=== PATIENT | male | born 1955 | race Caucasian/White ===

== ENCOUNTER 2016-09-05 09:42 | Outpatient (CLI) | payer MEDICAID | END 2016-09-05 09:43 | disposition home or self-care (01) | DX: E11.3219 Type 2 diabetes mellitus with mild nonproliferative diabetic retinopathy with macular edema, unspecified eye (principal) ==

== ENCOUNTER 2016-09-22 18:13 | Emergency (ER) | payer MEDICAID | END 2016-09-22 19:58 | disposition home or self-care (01) | DX: D64.9 Anemia, unspecified (principal); R53.83 Other fatigue; E11.22 Type 2 diabetes mellitus with diabetic chronic kidney disease; N18.9 Chronic kidney disease, unspecified; E11.42 Type 2 diabetes mellitus with diabetic polyneuropathy; I12.9 Hypertensive chronic kidney disease with stage 1 through stage 4 chronic kidney disease, or unspecified chronic kidney disease; Z79.82 Long term (current) use of aspirin; Z79.4 Long term (current) use of insulin ==

== ENCOUNTER 2016-12-10 19:43 | Outpatient (CLI) | payer MEDICAID | END 2016-12-10 19:44 | disposition home or self-care (01) | DX: E11.3219 Type 2 diabetes mellitus with mild nonproliferative diabetic retinopathy with macular edema, unspecified eye (principal) ==

== ENCOUNTER 2017-01-13 14:47 | Outpatient (CLI) | payer MEDICAID ==
[2017-01-13 19:00] LABS: HCT - HEMATOCRIT 35.7 % (42.0-52.0); HGB - HEMOGLOBIN 11.7 g/dL (14.0-18.0); MEAN CORPUSCULAR HEMOGLOBIN 29.1 pg (27.0-31.0); MEAN CORPUSCULAR HGB CONC 32.8 g/dL (32.0-36.0); MEAN CORPUSCULAR VOLUME 88.6 fL (80.0-94.0); MEAN PLATELET VOLUME 8.9 fL (7.4-11.4); RED BLOOD COUNT 4.03 10^6/uL (4.70-6.10); RED CELL DISTRIBUTION WIDTH 13.7 % (12.0-15.0); WHITE BLOOD COUNT 13.4 x10^3/uL (4.8-10.8)
[2017-01-13 19:27] LABS: CALCIUM 9.3 mg/dL (8.5-10.3); CREATININE 2.9 mg/dL (0.6-1.2)
== END 2017-01-13 14:48 | disposition home or self-care (01) ==
LOC: LAB.N 14:47
PROVIDERS: ATTEND Internal Medicine Nephrology
DX: N05.9 Unspecified nephritic syndrome with unspecified morphologic changes (principal); D70.9 Neutropenia, unspecified; D63.1 Anemia in chronic kidney disease; R80.9 Proteinuria, unspecified
CPT/HCPCS: 36415; 80048; 82570; 84156

== ENCOUNTER 2017-04-04 08:38 | Outpatient (CLI) | payer MEDICAID ==
[2017-04-04 13:26] LABS: HEMOGLOBIN A1C 1.11 g/dL
== END 2017-04-04 08:39 | disposition home or self-care (01) ==
LOC: LAB.N 08:38
PROVIDERS: ATTEND Nurse Practitioner Gerontology
DX: E11.40 Type 2 diabetes mellitus with diabetic neuropathy, unspecified (principal)
CPT/HCPCS: 36415; 83036

== ENCOUNTER 2017-07-31 08:00 | Outpatient (CLI) | payer SELFPAY ==
[2017-07-31 13:28] LABS: HEMOGLOBIN A1C 1.52 g/dL
== END 2017-07-31 23:59 ==
LOC: LAB.N 08:00
PROVIDERS: ATTEND Nurse Practitioner Gerontology
DX: E11.3219 Type 2 diabetes mellitus with mild nonproliferative diabetic retinopathy with macular edema, unspecified eye (principal)
CPT/HCPCS: 36415; 83036

== ENCOUNTER 2017-08-29 19:52 | Emergency (ER) | payer SELFPAY ==
[2017-08-29 20:18] LABS: BILIRUBIN,URINE NEGATIVE (NEGATIVE); GLUCOSE, URINE (UA) 250 mg/dL (NEGATIVE); KETONES,URINE (UA) NEGATIVE (NEGATIVE); LEUKOCYTE ESTERASE, URINE NEGATIVE (NEGATIVE); NITRITE,URINE NEGATIVE (NEGATIVE); OCCULT BLOOD,URINE SMALL (NEGATIVE); PROTEIN,URINE 100 mg/dL (NEGATIVE); UROBILINOGEN,URINE 0.2 (NORMAL) E.U./dL (NORMAL)
[2017-08-29 20:29] LABS: CLARITY,URINE HAZY (CLEAR)
[2017-08-29 20:30] LABS: BACTERIA,URINE Few /HPF (None Seen); SQUAMOUS EPITHELIAL CELL,UR FEW Squamous (<= Few)
[2017-08-29] MEDS ORDERED: ONDANSETRON ODT 4 MG TABLET TL STA (20:38)
[2017-08-29 20:53] LABS: BASOPHILS % (AUTO) 0.5 %; EOSINOPHILS % (AUTO) 3.8 %; HGB - HEMOGLOBIN 12.1 g/dL (14.0-18.0); LYMPHOCYTES % (AUTO) 26.6 %; MEAN CORPUSCULAR HEMOGLOBIN 29.4 pg (27.0-31.0); MEAN CORPUSCULAR HGB CONC 32.5 g/dL (32.0-36.0); MEAN CORPUSCULAR VOLUME 90.5 fL (80.0-94.0); MEAN PLATELET VOLUME 8.4 fL (7.4-11.4); MONOCYTES % (AUTO) 5.9 %; NEUTROPHILS % (AUTO) 63.2 %; PLT - PLATELET COUNT 262 10^3/uL (130-450); RED CELL DISTRIBUTION WIDTH 13.2 % (12.0-15.0); WHITE BLOOD COUNT 10.2 x10^3/uL (4.8-10.8)
[2017-08-29 20:58] LABS: ABNORMAL LYMPHS % (MANUAL) 0 %
[2017-08-29 21:05] LABS: ALBUMIN 3.4 g/dL (3.2-5.5); BILIRUBIN,TOTAL 0.3 mg/dL (0.2-1.0); CALCIUM 9.1 mg/dL (8.5-10.3); CREATININE 2.7 mg/dL (0.6-1.2); TOTAL PROTEIN 6.9 g/dL (6.7-8.2)
[2017-08-29 21:19] LABS: BAND NEUTROPHILS % (MANUAL) 1 %; EOSINOPHILS # (MANUAL) 0.2 10^3/uL (0-0.7); LYMPHOCYTES # (MANUAL) 3.9 10^3/uL (1.5-3.5); LYMPHOCYTES % (MANUAL) 34 %; METAMYELOCYTES % (MANUAL) 3 %; MONOCYTES # (MANUAL) 0.3 10^3/uL (0.0-1.0); MYELOCYTES % (MANUAL) 3 %; NEUTROPHILS # (MANUAL) 5.2 10^3/uL (1.5-6.6); NEUTROPHILS % (MANUAL) 50 %
--- NOTE | 2017-08-29 22:28 | CT Report ---
EXAM: CT ABDOMEN AND PELVIS EXAM DATE: 08/29/2017 09:57 PM. CLINICAL HISTORY: Rlq pain, gfr less than 24. COMPARISONS: 10/14/2013 CT. TECHNIQUE: Routine helical CT imaging was performed through the abdomen and pelvis. IV contrast: No. Enteric contrast: No. Reconstructions: Coronal and sagittal. In accordance with CT protocol optimization, one or more of the following dose reduction techniques w ere utilized for this exam: automated exposure control, adjustment of mA and/or KV based on patient s ize, or use of iterative reconstructive technique. FINDINGS: Lung Bases: Unremarkable. Liver: The unenhanced liver is unremarkable. Gallbladder/Bile Ducts: The gallbladder has been removed. There is a dilated cystic duct remnant shaquille lar to the previous exam. Spleen: Normal. Pancreas: Atrophic pancreas. No evidence of acute pancreatitis. Adrenal Glands: Normal. Kidneys: Normal. No masses or hydronephrosis. Peritoneal Cavity/Bowel: Normal. No free fluid, free air or adenopathy. No masses or acute inflammato ry process. The appendix is well visualized and normal. Pelvic Organs: Normal. The bladder and visualized pelvic organs are within normal limits. Vasculature: Atherosclerotic aortoiliac disease. No evidence of aneurysm. Bones: No significant abnormality. Other: There is a small omentum-containing midline upper abdominal hernia.. IMPRESSION: 1. No evidence of appendicitis or other acute inflammatory process. 2. No urinary tract stones or obstruction. 3. Status post cholecystectomy with dilated cystic duct remnant similar to the previous exam. 4. Small, omentum-containing midline upper abdominal ventral hernia. [facility] Referring Provider Line: [phone] SITE ID: [id number]
--- NOTE | 2017-08-29 22:55 | ED Physician Documentation ---
PD HPI ABD PAIN - Stated complaint Stated Complaint: MALE /COUGH - Chief complaint Chief Complaint: Abd Pain - History obtained from History obtained from: Patient - History of Present Illness Timing - onset: Yesterday Timing - details: Gradual onset, Still present Quality: Cramping, Aching Location: RLQ Associated symptoms: Nausea. No: Fever, Vomiting, Hematemesis Similar symptoms before: Work up / diagnostics Recently seen: Not recently seen - Additional information Additional information: Patient is a 61 year old male with a history of CKD who is presenting to the emergency department for abdominal pain. Patient states that he had the pain starting yesterday and it has been accompanied with a mild cough. Patient states that the last two times he had this mild cough and didn't feel right he was sick (gallbladder disease and pancreatitis). Patient thought that he might be sick again so he came to the emergency department for evaluation. Review of Systems Constitutional: reports: Chills. denies: Fever, Sweats Eyes: denies: Decreased vision Ears: denies: Ear pain Nose: denies: Rhinorrhea / runny nose, Congestion Throat: denies: Sore throat Respiratory: reports: Cough. denies: Wheezing GI: reports: Abdominal Pain, Nausea. denies: Vomiting, Constipation, Diarrhea : denies: Dysuria, Frequency, Hesitancy Skin: denies: Rash, Lesions Musculoskeletal: denies: Neck pain, Back pain Neurologic: denies: Generalized weakness, Focal weakness, Numbness Immunocompromised: denies: Immunocompromised PD PAST MEDICAL HISTORY - Past Medical History Cardiovascular: Hypertension, High cholesterol, [place], Other Neuro: Peripheral neuropathy Endocrine/Autoimmune: Type 2 diabetes, Other GI: Chronic constipation, Pancreatitis, Other HEENT: Macular degeneration, Other - Past Surgical History Past Surgical History: Yes General: Cholecystectomy - Present Medications Home Medications: Ambulatory Orders Medication Instructions Recorded Confirmed Lisinopril 5 mg PO DAILY 12/17/12 09/22/16 Amlodipine Besylate 5 mg PO QDBREAKFAST 10/14/13 09/22/16 hydroCHLOROthiazide [Hydrodiuril] 25 mg PO DAILY 10/14/13 09/22/16 Amlodipine Besylate [Norvasc] 10 mg PO QPM 05/31/14 09/22/16 Insulin Glargine [Lantus Solostar] 28 unit SQ QPM 06/29/15 09/22/16 Insulin Glulisine [Apidra Solostar] 8 - 10 units SQ AC 08/15/15 09/22/16 Aspirin [Aspir-Low] 81 mg PO DAILY 09/22/16 09/22/16 Atorvastatin [Lipitor] 20 mg PO DAILY 09/22/16 09/22/16 Cetirizine [ZyrTEC] 10 mg PO DAILY 09/22/16 09/22/16 - Allergies Allergies/Adverse Reactions: Allergies Allergy/AdvReac Type Severity Reaction Status Date / Time No Known Drug Allergies Allergy Verified 08/29/17 19:59 - Social History Does the pt smoke?: No Smoking Status: Former smoker Does the pt drink ETOH?: No Does the pt have substance abuse?: No - Immunizations Immunizations are current?: Yes - POLST Patient has POLST: No PD ED PE NORMAL - General General: Alert and oriented X 3, No acute distress - HEENT HEENT: Atraumatic, PERRL, Moist mucous membranes, Pharynx benign - Neck Neck: Supple, no meningeal sign, No JVD - Cardiac Cardiac: RRR, No murmur - Respiratory Respiratory: No respiratory distress, Clear bilaterally - Derm Derm: Normal color, Warm and dry, No rash - Extremities Extremities: No deformity, Normal ROM s pain, No edema - Neuro Neuro: Alert and oriented X 3, No motor deficit, No sensory deficit, Normal speech - Psych Psych: Normal mood PD ED PE EXPANDED - Abdomen Abdomen: Tender to palpation, RLQ. No: Rebound, Guarding Results - Vitals Vitals: Vital Signs - 24 hr 08/29/17 08/29/17 19:56 22:59 Temperature 36.9 C Heart Rate 100 98 Respiratory 16 16 Rate Blood Pressure 161/99 H 147/95 H O2 Saturation 99 99 Oxygen O2 Source Room air - Labs Labs: Laboratory Tests 08/29/17 08/29/17 08/29/17 19:10 20:45 20:45 WBC 10.2 RBC 4.10 L Hgb 12.1 L Hct 37.1 L MCV 90.5 MCH 29.4 MCHC 32.5 RDW 13.2 Plt Count 262 MPV 8.4 Neut # Not Reportable Lymph # Not Reportable [place] # Not Reportable Eos # Not Reportable Baso # Not Reportable Absolute Nucleated RBC Not Reportable Total Counted 100 Band Neuts % (Manual) 1 Reactive Lymphs % (Man) 4 Abnorm Lymph % (Manual) 0 Metamyelocytes % 3 H Myelocytes % 3 H Nucleated RBC % Not Reportable Neutrophils # (Manual) 5.2 Lymphocytes # (Manual) 3.9 H Monocytes # (Manual) 0.3 Eosinophils # (Manual) 0.2 Basophils # (Manual) 0.0 Manual Slide Review Indicated RBC Morph Micro Appear 1+ KISHA CELLS Sodium 133 L Potassium 3.9 Chloride 101 Carbon Dioxide 21 Anion Gap 11.0 BUN 48 H Creatinine 2.7 H Estimated GFR (MDRD) 24 L Glucose 270 H Calcium 9.1 Total Bilirubin 0.3 AST 16 ALT 17 Alkaline Phosphatase 95 Total Protein 6.9 Albumin 3.4 Globulin 3.5 Albumin/Globulin Ratio 1.0 Lipase 21 L Urine Color YELLOW Urine Clarity HAZY Urine pH 6.0 Ur Specific [place] >=1.030 H Urine Protein 100 H Urine Glucose (UA) 250 H Urine Ketones NEGATIVE Urine Occult Blood SMALL H Urine Nitrite NEGATIVE Urine Bilirubin NEGATIVE Urine Urobilinogen 0.2 (NORMAL) Ur Leukocyte Esterase NEGATIVE Urine RBC 6-10 H Urine WBC 0-3 Ur Squamous Epith Cells FEW Squamous Urine Bacteria Few Ur Microscopic Review INDICATED Urine Culture Comments NOT INDICATED Slides for Path Review Indicated - Rads (name of study) ct abd pelvis Radiology: Final report received (no acute abnormality. normal appendix) PD MEDICAL DECISION MAKING - ED course Complexity details: reviewed old records, reviewed results, re-evaluated patient , considered differential, d/w patient ED course: Patient was seen and examined at bedside. IV access was gained and labs were drawn. due to patient's history and location of pain imaging was ordered. Patient could not have contrast due to his renal insufficiency. When patient returned the results were reviewed. there was no sign of acute appendicitis or other intraabdominal infection. patient required no further work up and was stable for discharge with outpatient follow up. Departure - Departure Disposition: 01 Home, Self Care Clinical Impression: Abdominal pain Condition: Good Instructions: Abdominal Pain Follow-Up: Julissa Palmer ARNP [Primary Care Provider] - Within 1 week Comments: Your diagnostics today were within normal limits. there is no sign of infection , or other new acute abnormalities. You can take tylenol as needed for pain. You should follow up with your pmd and you may return to the emergency department at any time for new, worsening or uncontrollable symptoms. Discharge Date/Time: 08/29/17 23:02
[2017-08-29 23:00] VITALS: BP 147/95
== END 2017-08-29 23:02 | disposition home or self-care (01) ==
LOC: ED 19:52
DX: R10.31 Right lower quadrant pain (principal); I12.9 Hypertensive chronic kidney disease with stage 1 through stage 4 chronic kidney disease, or unspecified chronic kidney disease; E11.22 Type 2 diabetes mellitus with diabetic chronic kidney disease; N18.9 Chronic kidney disease, unspecified; E78.00 Pure hypercholesterolemia, unspecified; I25.2 Old myocardial infarction; E11.42 Type 2 diabetes mellitus with diabetic polyneuropathy; Z79.4 Long term (current) use of insulin; Z87.891 Personal history of nicotine dependence
CPT/HCPCS: 36415; 74176; 80053; 81001; 83690; 85025; 99283; 99284; Q0162; 81003; 87086

== ENCOUNTER 2017-10-13 13:10 | Outpatient (CLI) | payer MEDICAID ==
[2017-10-13 19:08] LABS: HGB - HEMOGLOBIN 11.4 g/dL (14.0-18.0); MEAN CORPUSCULAR HGB CONC 32.4 g/dL (32.0-36.0); MEAN CORPUSCULAR VOLUME 89.3 fL (80.0-94.0); MEAN PLATELET VOLUME 9.1 fL (7.4-11.4); RED BLOOD COUNT 3.93 10^6/uL (4.70-6.10); RED CELL DISTRIBUTION WIDTH 13.8 % (12.0-15.0); WHITE BLOOD COUNT 10.7 x10^3/uL (4.8-10.8)
[2017-10-13 19:24] LABS: CALCIUM 8.9 mg/dL (8.5-10.3); CREATININE 2.6 mg/dL (0.6-1.2); PHOSPHORUS 4.1 mg/dL (2.5-4.6)
[2017-10-13 19:42] LABS: CREATININE,URINE 108.3 mg/dL
== END 2017-10-13 13:11 | disposition home or self-care (01) ==
LOC: LAB.N 13:10
PROVIDERS: ATTEND Internal Medicine Nephrology
DX: N05.9 Unspecified nephritic syndrome with unspecified morphologic changes (principal); D70.9 Neutropenia, unspecified; D63.1 Anemia in chronic kidney disease; R80.9 Proteinuria, unspecified; E83.30 Disorder of phosphorus metabolism, unspecified; N25.81 Secondary hyperparathyroidism of renal origin; E87.1 Hypo-osmolality and hyponatremia
CPT/HCPCS: 36415; 80048; 81256; 82570; 83970; 84100; 84156

== ENCOUNTER 2017-11-10 23:10 | Outpatient (CLI) | payer MEDICAID, OTHER ==
[2017-11-10 13:18] LABS: HB2 TOTAL 11.8 g/dL; HEMOGLOBIN A1C 1.13 g/dL; HEMOGLOBIN A1C % 10.9 % (4.6-6.2)
== END 2017-11-10 23:11 | disposition home or self-care (01) ==
LOC: LAB.N 23:10
PROVIDERS: ATTEND Nurse Practitioner Gerontology
DX: E11.65 Type 2 diabetes mellitus with hyperglycemia (principal)
CPT/HCPCS: 36415; 83036

== ENCOUNTER 2017-12-15 14:31 | Emergency (ER) | payer OTHER ==
--- NOTE | 2017-12-15 16:29 | ED Physician Documentation ---
PD HPI LOWER EXT INJURY - Stated complaint Stated Complaint: R KNEE/FOOT PX - Chief complaint Chief Complaint: Ext Problem - History obtained from History obtained from: Patient, Caregiver - History of Present Illness PD HPI LOW EXT INJURY LOCATION: Right, Knee, Lower leg Type of injury: Other (walking) Where injury occurred: Home Timing - onset: How many weeks ago (1) Timing - duration: Weeks (1) Timing - details: Gradual onset, Still present Improved by: Rest, Immobilization Worsened by: Moving, Palpating Associated symptoms: Swelling. 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 He is brought in here by a caregiver who insists that he has been walking too much because he has been an sonia that pays him to walk. The patient acknowledges this. He has not had any other specific risk for confinement. Review of Systems Constitutional: denies: Fever Eyes: denies: Decreased vision Ears: denies: Ear pain Nose: denies: Congestion Throat: denies: Sore throat Cardiac: denies: Chest pain / pressure, Palpitations Respiratory: denies: Dyspnea, Cough GI: denies: Abdominal Pain, Nausea, Vomiting : denies: Dysuria, Frequency Musculoskeletal: reports: Joint pain, Extremity swelling Neurologic: denies: Generalized weakness, Focal weakness, Numbness PD PAST MEDICAL HISTORY - Past Medical History Cardiovascular: Hypertension, High cholesterol, [place], Other Neuro: Peripheral neuropathy Endocrine/Autoimmune: Type 2 diabetes, Other GI: Chronic constipation, Pancreatitis, Other HEENT: Macular degeneration, Other - Past Surgical History Past Surgical History: Yes General: Cholecystectomy - Present Medications Home Medications: Ambulatory Orders Medication Instructions Recorded Confirmed Lisinopril 5 mg PO DAILY 12/17/12 09/22/16 Amlodipine Besylate 5 mg PO QDBREAKFAST 10/14/13 09/22/16 hydroCHLOROthiazide [Hydrodiuril] 25 mg PO DAILY 10/14/13 09/22/16 Amlodipine Besylate [Norvasc] 10 mg PO QPM 05/31/14 09/22/16 Insulin Glargine [Lantus Solostar] 28 unit SQ QPM 06/29/15 09/22/16 Insulin Glulisine [Apidra Solostar] 8 - 10 units SQ AC 08/15/15 09/22/16 Aspirin [Aspir-Low] 81 mg PO DAILY 09/22/16 09/22/16 Atorvastatin [Lipitor] 20 mg PO DAILY 09/22/16 09/22/16 Cetirizine [ZyrTEC] 10 mg PO DAILY 09/22/16 09/22/16 - Allergies Allergies/Adverse Reactions: Allergies Allergy/AdvReac Type Severity Reaction Status Date / Time No Known Drug Allergies Allergy Verified 12/15/17 14:46 - Social History Does the pt smoke?: No Smoking Status: Former smoker Does the pt drink ETOH?: No Does the pt have substance abuse?: No - Immunizations Immunizations are current?: Yes - POLST Patient has POLST: No PD ED PE NORMAL - Vitals Vital signs reviewed: Yes (hypesrtensive ) - General General: Alert and oriented X 3, No acute distress, Well developed/nourished - HEENT HEENT: Atraumatic, PERRL - Respiratory Respiratory: No respiratory distress - Derm Derm: Normal color, Warm and dry, No rash - Extremities Extremities: No deformity, Other (There is swelling from the knee to the foot without tendeness and there is a fullness to the posterior knee consistent with a singh cyst. There is mild posterior calf tenderness as well ) - Neuro Neuro: Alert and oriented X 3, No motor deficit, No sensory deficit, Normal speech Eye Opening: Spontaneous Motor: Obeys Commands Verbal: Oriented GCS Score: 15 - Psych Psych: Normal mood, Normal affect Results - Vitals Vitals: Vital Signs - 24 hr 12/15/17 18:45 Heart Rate 80 Respiratory 16 Rate Blood Pressure 152/96 H Oxygen O2 Source Room air - Rads (name of study) duplex veins right Radiology: Prelim report reviewed (Impression: 1. 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 He does have actual swelling bilaterally and has been doing a lot more walking than usual. I have asked him to wear compression hose when he is doing his walking Departure - Departure Disposition: 01 Home, Self Care Clinical Impression: Singh's cyst of knee Qualifiers: Laterality: right Qualified Code(s): M71.21 - Synovial cyst of popliteal space [Francisco], right knee Condition: Stable Instructions: ED Cyst Singh Follow-Up: Julissa Palmer ARNP [Primary Care Provider] - Discharge Date/Time: 12/15/17 18:46
--- NOTE | 2017-12-15 18:06 | Ultrasound Preliminary Report ---
Exam: US DUPLEX EXT VEINS RIGHT IMPRESSION: 1. Negative for DVT in the right lower extremity. [facility] SITE ID: [id number]
--- NOTE | 2017-12-15 18:06 | Ultrasound Report ---
EXAM: RIGHT LOWER EXTREMITY VENOUS ULTRASOUND EXAM DATE: 12/15/2017 05:17 PM. CLINICAL HISTORY: Right leg swelling. Possible DVT. COMPARISON: None. TECHNIQUE: Real-time sonographic vascular imaging was performed by the protection consultant through the lower extremity utilizing both color-flow and Doppler spectral analysis. Multiple field sales representative static vincent ges were saved for review. FINDINGS: Common Femoral Vein (CFV): Normal. CFV-GSV Junction: Normal. Profunda Femoral Vein (PFV): Normal. Femoral Vein (FV) Prox: Normal. Femoral Vein (FV) Mid: Normal. Femoral Vein (FV) Dist: Normal. Popliteal Vein: Normal. Posterior Tibial Veins: Normal. Peroneal Veins: Normal. IMPRESSION: 1. Negative for DVT in the right lower extremity. [facility] Referring Provider Line: [phone] SITE ID: [id number]
[2017-12-15 18:46] VITALS: BP 152/96
== END 2017-12-15 18:46 | disposition home or self-care (01) ==
LOC: ED 14:31
DX: M71.21 Synovial cyst of popliteal space [Baker], right knee (principal); I10 Essential (primary) hypertension; E78.00 Pure hypercholesterolemia, unspecified; E11.42 Type 2 diabetes mellitus with diabetic polyneuropathy; Z79.4 Long term (current) use of insulin; I25.2 Old myocardial infarction; Z79.82 Long term (current) use of aspirin; Z87.891 Personal history of nicotine dependence
CPT/HCPCS: 99282; 99283

== ENCOUNTER 2018-02-12 08:00 | Outpatient (CLI) | payer OTHER ==
[2018-02-12 13:24] LABS: CALCIUM 9.2 mg/dL (8.5-10.3); CREATININE 3.1 mg/dL (0.6-1.2)
[2018-02-12 13:36] LABS: HB2 TOTAL 11.9 g/dL; HEMOGLOBIN A1C 1.06 g/dL; HEMOGLOBIN A1C % 10.3 % (4.6-6.2)
== END 2018-02-12 08:01 ==
LOC: LAB.N 08:00
PROVIDERS: ATTEND Nurse Practitioner Gerontology
DX: E11.40 Type 2 diabetes mellitus with diabetic neuropathy, unspecified (principal)
CPT/HCPCS: 36415; 80048; 82043; 83036

== ENCOUNTER 2018-04-24 16:01 | Emergency (ER) | payer OTHER ==
[2018-04-24] MEDS ORDERED: SODIUM CHLORIDE 0.9% 1,000 ML IV ONE (16:18)
[2018-04-24 16:32] LABS: BASOPHILS % (AUTO) 0.4 %; EOSINOPHILS # (AUTO) 0.2 10^3/uL (0.0-0.7); EOSINOPHILS % (AUTO) 1.9 %; HGB - HEMOGLOBIN 10.9 g/dL (14.0-18.0); LYMPHOCYTES # (AUTO) 2.3 10^3/uL (1.5-3.5); LYMPHOCYTES % (AUTO) 20.1 %; MEAN CORPUSCULAR HEMOGLOBIN 30.7 pg (27.0-31.0); MEAN CORPUSCULAR HGB CONC 33.3 g/dL (32.0-36.0); MEAN CORPUSCULAR VOLUME 92.1 fL (80.0-94.0); MEAN PLATELET VOLUME 9.2 fL (7.4-11.4); MONOCYTES # (AUTO) 0.8 10^3/uL (0.0-1.0); NEUTROPHILS # (AUTO) 8.1 10^3/uL (1.5-6.6); NEUTROPHILS % (AUTO) 70.6 %; PLT - PLATELET COUNT 225 10^3/uL (130-450); RED BLOOD COUNT 3.56 10^6/uL (4.70-6.10); RED CELL DISTRIBUTION WIDTH 13.6 % (12.0-15.0); WHITE BLOOD COUNT 11.4 x10^3/uL (4.8-10.8)
--- NOTE | 2018-04-24 16:35 | ED Physician Documentation ---
History of Present Illness - Stated complaint Stated Complaint: FATIGUE - Chief complaint Chief Complaint: General - History obtained from History obtained from: Patient - Additonal information Additional information: The patient is a 62-year-old insulin-dependent diabetic male with history of chronic renal disease, who presents with fatigue that has been ongoing for the past 2 days. He has had slight nonproductive cough. He denies fever, chest pain, shortness of breath, nausea or vomiting. He reports that when he feels fatigued like this it has usually been something bad like pancreatitis. In a later conversation he reports having a slight discomfort in his throat yesterday and earlier today. He denies any discomfort at this time. Review of Systems Constitutional: reports: Fatigue. denies: Fever Ears: denies: Tinnitus/ringing Nose: denies: Congestion Throat: reports: Sore throat (Vague feeling of throat discomfort yesterday, but not currently.) Cardiac: denies: Chest pain / pressure, Palpitations Respiratory: reports: Cough (Slight, nonproductive.). denies: Dyspnea GI: denies: Abdominal Pain, Nausea, Vomiting : denies: Dysuria Skin: denies: Rash Musculoskeletal: denies: Extremity pain, Extremity swelling Neurologic: denies: Focal weakness, Numbness, Headache PD PAST MEDICAL HISTORY - Past Medical History Cardiovascular: Hypertension, High cholesterol, [place], Other Endocrine/Autoimmune: Type 2 diabetes, Other GI: Chronic constipation, Pancreatitis, Other HEENT: Macular degeneration, Other - Past Surgical History Past Surgical History: Yes General: Cholecystectomy - Present Medications Home Medications: Ambulatory Orders Medication Instructions Recorded Confirmed Lisinopril 10 mg PO DAILY 12/17/12 09/22/16 hydroCHLOROthiazide [Hydrodiuril] 50 mg PO DAILY 10/14/13 04/24/18 Amlodipine Besylate [Norvasc] 10 mg PO QPM 05/31/14 04/24/18 Insulin Glulisine [Apidra Solostar] 8 - 12 units SQ AC 08/15/15 04/24/18 Aspirin [Aspir-Low] 81 mg PO DAILY 09/22/16 04/24/18 Atorvastatin [Lipitor] 20 mg PO DAILY 09/22/16 04/24/18 - Allergies Allergies/Adverse Reactions: Allergies Allergy/AdvReac Type Severity Reaction Status Date / Time No Known Drug Allergies Allergy Verified 04/24/18 16:23 - Social History Does the pt smoke?: No Smoking Status: Former smoker Does the pt drink ETOH?: No Does the pt have substance abuse?: No - Immunizations Immunizations are current?: Yes - POLST Patient has POLST: No PD ED PE NORMAL - Vitals Vital signs reviewed: Yes (Borderline hypertension.) - General General: Alert and oriented X 3, Well developed/nourished - HEENT HEENT: Atraumatic, Moist mucous membranes, Pharynx benign - Neck Neck: Supple, no meningeal sign, No adenopathy, No JVD - Cardiac Cardiac: RRR, No murmur - Respiratory Respiratory: No respiratory distress, Clear bilaterally - Abdomen Abdomen: Soft, Non tender - Back Back: No CVA TTP - Derm Derm: No rash - Extremities Extremities: No edema, No calf tenderness / cord - Neuro Neuro: Alert and oriented X 3, No motor deficit, No sensory deficit Results - Vitals Vitals: Vital Signs - 24 hr 04/24/18 04/24/18 16:09 17:05 Temperature 37.1 C Heart Rate 84 68 Respiratory 18 18 Rate Blood Pressure 144/81 H 146/74 H O2 Saturation 98 99 Oxygen O2 Source Room air - EKG (time done) 16:28 Rate: Rate (enter#) (87) Rhythm: NSR [place]: Normal Intervals: Other (Nonspecific IVCD.) Ischemia: ST elevation c/w ischemia (<1mm ST elevation in III and aVF, new since prior tracing of 09/22/2016.) Compare to prior EKG: Changed from prior EKG Computer interpretation: Agree with computer - Labs Labs: Laboratory Tests 04/24/18 04/24/18 04/24/18 16:25 16:25 16:25 WBC 11.4 H RBC 3.56 L Hgb 10.9 L Hct 32.8 L MCV 92.1 MCH 30.7 MCHC 33.3 RDW 13.6 Plt Count 225 MPV 9.2 Neut # (Auto) 8.1 H Lymph # (Auto) 2.3 [place] # (Auto) 0.8 Eos # (Auto) 0.2 Baso # (Auto) 0.0 Absolute Nucleated RBC 0.00 Nucleated RBC % 0.0 Sodium 132 L Potassium 4.1 Chloride 101 Carbon Dioxide 25 Anion Gap 6.0 BUN 49 H Creatinine 3.1 H Estimated GFR (MDRD) 21 L Glucose 350 H Calcium 8.9 Total Bilirubin 0.4 AST 58 H ALT 24 Alkaline Phosphatase 108 Troponin I 4.81 H* Total Protein 7.2 Albumin 3.5 Globulin 3.7 Albumin/Globulin Ratio 0.9 L Lipase 27 Urine Color Urine Clarity Urine pH Ur Specific [place] Urine Protein Urine Glucose (UA) Urine Ketones Urine Occult Blood Urine Nitrite Urine Bilirubin Urine Urobilinogen Ur Leukocyte Esterase Urine RBC Urine WBC Ur Squamous Epith Cells Urine Bacteria Urine Casts Urine Mucus Ur Microscopic Review Urine Culture Comments 04/24/18 16:44 WBC RBC Hgb Hct MCV MCH MCHC RDW Plt Count MPV Neut # (Auto) Lymph # (Auto) [place] # (Auto) Eos # (Auto) Baso # (Auto) Absolute Nucleated RBC Nucleated RBC % Sodium Potassium Chloride Carbon Dioxide Anion Gap BUN Creatinine Estimated GFR (MDRD) Glucose Calcium Total Bilirubin AST ALT Alkaline Phosphatase Troponin I Total Protein Albumin Globulin Albumin/Globulin Ratio Lipase Urine Color YELLOW Urine Clarity HAZY Urine pH 5.5 Ur Specific [place] 1.025 Urine Protein >=300 Urine Glucose (UA) 500 H Urine Ketones NEGATIVE Urine Occult Blood SMALL H Urine Nitrite NEGATIVE Urine Bilirubin NEGATIVE Urine Urobilinogen 0.2 (NORMAL) Ur Leukocyte Esterase NEGATIVE Urine RBC 0-5 Urine WBC 0-3 Ur Squamous Epith Cells NONE SEEN Urine Bacteria None Seen Urine Casts 3-5 Hyaline Casts Urine Mucus Few Strands Ur Microscopic Review INDICATED Urine Culture Comments NOT INDICATED - Rads (name of study) CXR Radiology: Prelim report reviewed, EMP read contemporaneously, See rad report (Normal single view chest radiography.) PD MEDICAL DECISION MAKING - ED course Complexity details: reviewed old records, reviewed results, re-evaluated patient, considered differential, d/w patient, d/w internet marketing consultant ED course: The patient's presentation is significant for an acute inferior [place], with less than [address] elevations in leads III and aVF, which are new since prior tracing of September 2016. His troponin is elevated at 4.81. In addition his blood sugar is elevated at 350, and his BUN and creatinine are elevated at 49 and 3.1. Review of his medical record reveals previous BUN and creatinine in that range. Treatment in the emergency department included administration of 4 baby aspirin orally, Lopressor 25 mg orally, Plavix 300 mg orally, heparin bolus and infusion as per cardiac protocol. Insulin 10 units regular was administered subcutaneously. I discussed his condition with the emergency physician on duty at [facility], Dr. Artemio Crawford, who will accept the patient in transfer. Transfer forms were completed. - Critical Care Time(min): 45 Time Includes: Direct patient care, Review records, Reassess patient, Document care, Coordinate care Data interpretation: Labs, Pulse ox, CXR, Prior EKG Procedures excluded from critical care time: EKG - Sepsis Event Vital Signs: Vital Signs - 24 hr 04/24/18 04/24/18 16:09 17:05 Temperature 37.1 C Heart Rate 84 68 Respiratory 18 18 Rate Blood Pressure 144/81 H 146/74 H O2 Saturation 98 99 Oxygen O2 Source Room air Departure - Departure Disposition: 02 Transfer Acute Care Hosp Clinical Impression: Acute [place] Qualifiers: Myocardial infarction type: ST elevation myocardial infarction Involved coronary artery: other inferior wall coronary artery Qualified Code(s): I21.19 - ST elevation (STEMI) myocardial infarction involving other coronary artery of inferior wall Diabetes mellitus with hyperglycemia, with long-term current use of insulin Qualifiers: Diabetes mellitus type: type 2 Qualified Code(s): E11.65 - Type 2 diabetes mellitus with hyperglycemia Chronic renal insufficiency Qualifiers: Chronic kidney disease stage: unspecified stage Qualified Code(s): N18.9 - Chronic kidney disease, unspecified Condition: Stable
[2018-04-24 16:45] LABS: ALBUMIN 3.5 g/dL (3.2-5.5); ALBUMIN/GLOBULIN RATIO 0.9 (1.0-2.2); BILIRUBIN,TOTAL 0.4 mg/dL (0.2-1.0); CALCIUM 8.9 mg/dL (8.5-10.3); CREATININE 3.1 mg/dL (0.6-1.2); TOTAL PROTEIN 7.2 g/dL (6.7-8.2)
[2018-04-24 16:55] LABS: BILIRUBIN,URINE NEGATIVE (NEGATIVE); GLUCOSE, URINE (UA) 500 mg/dL (NEGATIVE); KETONES,URINE (UA) NEGATIVE (NEGATIVE); LEUKOCYTE ESTERASE, URINE NEGATIVE (NEGATIVE); NITRITE,URINE NEGATIVE (NEGATIVE); OCCULT BLOOD,URINE SMALL (NEGATIVE); PH,URINE 5.5 PH (5.0-7.5); PROTEIN,URINE >=300 mg/dL (NEGATIVE); UROBILINOGEN,URINE 0.2 (NORMAL) E.U./dL (NORMAL)
[2018-04-24] MEDS ORDERED: INSULIN REGULAR HUMAN 100 UNIT/1 ML 10 ML MDV SUBQ STA (16:58)
[2018-04-24 17:02] LABS: CLARITY,URINE HAZY (CLEAR)
[2018-04-24 17:04] LABS: BACTERIA,URINE None Seen /HPF (None Seen); CASTS, URINE 3-5 Hyaline Casts /LPF; MUCUS,URINE Few Strands; RBC,URINE 0-5 /HPF (0-5); SQUAMOUS EPITHELIAL CELL,UR NONE SEEN (<= Few)
[2018-04-24 17:06] VITALS: BP 146/74
[2018-04-24] MEDS ORDERED: METOPROLOL TARTRATE 50 MG TABLET PO STA (17:25)
[2018-04-24] MEDS ORDERED: HEPARIN 25000UNITS/500ML (D5W) 25,000 UNIT/500 ML BAG IV ONE (17:26)
[2018-04-24] MEDS ORDERED: CLOPIDOGREL 300 MG TABLET PO STA (17:26)
[2018-04-24] MEDS ORDERED: METOPROLOL TARTRATE 50 MG TABLET ONE (17:26)
[2018-04-24] MEDS ORDERED: HEPARIN 5,000 UNIT/ML VIAL ONE (17:26)
[2018-04-24] MEDS ORDERED: HEPARIN 25000UNITS/500ML (D5W) 25,000 UNIT/500 ML BAG IV STA (17:26)
[2018-04-24] MEDS ORDERED: ASPIRIN CHEW 81 MG TABLET ONE (17:26)
[2018-04-24] MEDS ORDERED: CLOPIDOGREL 300 MG TABLET PO ONE (17:26)
--- NOTE | 2018-04-24 17:56 | XRAY Report ---
Reason: cough Procedure Date: 04/24/2018 Accession Number: [id number] / [id number] Procedure: XR - Chest 1 View X-Ray CPT Code: 41477 FULL RESULT: EXAM: CHEST RADIOGRAPHY EXAM DATE: 04/24/2018 05:48 PM. CLINICAL HISTORY: Cough. COMPARISON: Chest 2 view PA and lateral 11/12/2013. TECHNIQUE: 1 view. FINDINGS: Lungs/Pleura: No focal opacities evident. No pleural effusion. No pneumothorax. Mediastinum: Within exam limitations, the cardiomediastinal contour is normal. Other: None. IMPRESSION: Normal single view chest. [facility]
== END 2018-04-24 18:46 | disposition short-term general hospital (02) ==
LOC: ED 16:01
DX: I21.19 ST elevation (STEMI) myocardial infarction involving other coronary artery of inferior wall (principal); E11.65 Type 2 diabetes mellitus with hyperglycemia; E11.22 Type 2 diabetes mellitus with diabetic chronic kidney disease; I12.9 Hypertensive chronic kidney disease with stage 1 through stage 4 chronic kidney disease, or unspecified chronic kidney disease; N18.9 Chronic kidney disease, unspecified; Z79.4 Long term (current) use of insulin; R94.31 Abnormal electrocardiogram [ECG] [EKG]; E78.00 Pure hypercholesterolemia, unspecified; I25.2 Old myocardial infarction
CPT/HCPCS: 36415; 71045; 80053; 81001; 83690; 84484; 85025; 93005; 96365; 96375; 99284; A9270; J1815; 81003; 87086

== ENCOUNTER 2018-04-24 18:21 | Outpatient (CLI) | payer OTHER | END 2018-04-24 18:22 | disposition short-term general hospital (02) | LOC: EMS 18:21 | PROVIDERS: ATTEND Surgery | DX: I21.9 Acute myocardial infarction, unspecified (principal) | CPT/HCPCS: A0425; A0426 ==

== ENCOUNTER 2018-04-30 09:00 | Outpatient (CLI) | payer OTHER ==
[2018-04-30 13:20] LABS: CALCIUM 9.2 mg/dL (8.5-10.3)
== END 2018-04-30 09:01 | disposition home or self-care (01) ==
LOC: LAB.N 09:00
PROVIDERS: ATTEND Internal Medicine Nephrology
DX: N05.9 Unspecified nephritic syndrome with unspecified morphologic changes (principal)
CPT/HCPCS: 36415; 80048

== ENCOUNTER 2018-05-25 09:35 | Outpatient (CLI) | payer OTHER ==
[2018-05-25 13:12] LABS: HEMOGLOBIN A1C 0.89 g/dL; HEMOGLOBIN A1C % 9.6 % (4.6-6.2)
== END 2018-05-25 09:36 | disposition home or self-care (01) ==
LOC: LAB.WCP 09:35
PROVIDERS: ATTEND Nurse Practitioner Gerontology
DX: E11.65 Type 2 diabetes mellitus with hyperglycemia (principal)
CPT/HCPCS: 36415; 83036

== ENCOUNTER 2018-07-20 08:00 | Outpatient (CLI) | payer OTHER ==
[2018-07-20 19:13] LABS: HGB - HEMOGLOBIN 10.7 g/dL (14.0-18.0); MEAN CORPUSCULAR HEMOGLOBIN 29.5 pg (27.0-31.0); MEAN CORPUSCULAR VOLUME 92.2 fL (80.0-94.0); MEAN PLATELET VOLUME 9.7 fL (7.4-11.4); RED BLOOD COUNT 3.63 10^6/uL (4.70-6.10); RED CELL DISTRIBUTION WIDTH 14.3 % (12.0-15.0); WHITE BLOOD COUNT 8.1 x10^3/uL (4.8-10.8)
[2018-07-20 19:29] LABS: CALCIUM 8.4 mg/dL (8.5-10.3); PHOSPHORUS 4.2 mg/dL (2.5-4.6)
[2018-07-20 20:31] LABS: CREATININE,URINE 120.5 mg/dL
== END 2018-07-20 23:59 | disposition home or self-care (01) ==
LOC: LAB.N 08:00
PROVIDERS: ATTEND Internal Medicine Nephrology
DX: N05.9 Unspecified nephritic syndrome with unspecified morphologic changes (principal); D70.9 Neutropenia, unspecified; D63.1 Anemia in chronic kidney disease; R80.9 Proteinuria, unspecified; E83.30 Disorder of phosphorus metabolism, unspecified; N25.81 Secondary hyperparathyroidism of renal origin
CPT/HCPCS: 36415; 80048; 82570; 83970; 84100; 84156; 85027

== ENCOUNTER 2018-08-22 09:57 | Emergency (ER) | payer OTHER ==
--- NOTE | 2018-08-22 10:24 | ED Physician Documentation ---
History of Present Illness - Stated complaint Stated Complaint: LT ARM TINGELING - Chief complaint Chief Complaint: Ext Problem - Additonal information Additional information: hx from pt 62 male has CAD DM renal insuff to ED with CC 1 month of L arm tingling entire arm affected constant for a month - no ppt or palliating factors no numbness or weakness no other ext affected no CP or SOA no fever cough abd pain NVD no injury Review of Systems Constitutional: denies: Fever, Chills Cardiac: denies: Chest pain / pressure Respiratory: denies: Dyspnea GI: denies: Abdominal Pain, Vomiting, Diarrhea Neurologic: reports: Other (tingling to entire L arm fo a month). denies: Focal weakness, Numbness PD PAST MEDICAL HISTORY - Past Medical History Cardiovascular: Hypertension, High cholesterol, [place], Other Endocrine/Autoimmune: Type 2 diabetes, Other GI: Chronic constipation, Pancreatitis, Other HEENT: Macular degeneration, Other - Past Surgical History Past Surgical History: Yes General: Cholecystectomy - Present Medications Home Medications: Ambulatory Orders Medication Instructions Recorded Confirmed Lisinopril 10 mg PO DAILY 12/17/12 09/22/16 hydroCHLOROthiazide [Hydrodiuril] 50 mg PO DAILY 10/14/13 04/24/18 Amlodipine Besylate [Norvasc] 10 mg PO QPM 05/31/14 04/24/18 Insulin Glulisine [Apidra Solostar] 8 - 12 units SQ AC 08/15/15 04/24/18 Aspirin [Aspir-Low] 81 mg PO DAILY 09/22/16 04/24/18 Atorvastatin [Lipitor] 20 mg PO DAILY 09/22/16 04/24/18 predniSONE [Deltasone] 20 mg PO [id number] #[id number] tab 08/22/18 - Allergies Allergies/Adverse Reactions: Allergies Allergy/AdvReac Type Severity Reaction Status Date / Time No Known Drug Allergies Allergy Verified 04/24/18 16:23 - Social History Does the pt smoke?: No Smoking Status: Former smoker Does the pt drink ETOH?: No Does the pt have substance abuse?: No - Immunizations Immunizations are current?: Yes - POLST Patient has POLST: No PD ED PE NORMAL - Vitals Vital signs reviewed: Yes - Neck Neck: Supple, no meningeal sign, No bony TTP - Cardiac Cardiac: RRR - Respiratory Respiratory: No respiratory distress - Abdomen Abdomen: Soft - Derm Derm: Normal color - Extremities Extremities: Other (no edema or discoloration strong pulses nl senation shoulder AB elbow fex ext wrist flex ext finger ABD thumbs up wood fuel pelletizer all 5/5) - Neuro Neuro: Alert and oriented X 3, addiction professional 2-12 intact, No motor deficit, No sensory deficit Results - Vitals Vitals: Vital Signs - 24 hr 08/22/18 08/22/18 08/22/18 10:10 11:21 11:30 Temperature 36.3 C L Heart Rate 70 62 63 Respiratory 16 15 16 Rate Blood Pressure 138/88 H 156/87 H 152/92 H O2 Saturation 100 100 98 Oxygen O2 Source Room air - EKG (time done) 1015 Rate: Rate (enter#) Rhythm: NSR Ischemia: Other (ST elev concave up V1-V3 could be rpol or ischemia. TWI V6, ST depr and TWI I) Compare to prior EKG: Other (change from Apr 2018 - he has TE elev nf then and the TWI V6 is new today) - Labs Labs: Laboratory Tests 08/22/18 08/22/18 08/22/18 10:27 10:27 10:27 WBC 9.2 RBC 3.85 L Hgb 11.3 L Hct 34.8 L MCV 90.2 MCH 29.3 MCHC 32.4 RDW 14.4 Plt Count 212 MPV 8.7 Neut # (Auto) 6.0 Lymph # (Auto) 2.1 [place] # (Auto) 0.6 Eos # (Auto) 0.4 Baso # (Auto) 0.0 Absolute Nucleated RBC 0.00 Nucleated RBC % 0.0 Sodium 135 Potassium 4.7 Chloride 108 Carbon Dioxide 21 Anion Gap 6.0 BUN 58 H Creatinine 2.9 H Estimated GFR (MDRD) 22 L Glucose 158 H Calcium 8.7 Total Bilirubin 0.3 AST 21 ALT 22 Alkaline Phosphatase 112 Troponin I < 0.04 Total Protein 6.4 L Albumin 3.1 L Globulin 3.3 Albumin/Globulin Ratio 0.9 L Lipase 27 - Rads (name of study) CTH Radiology: See rad report (no acute) CT CS Radiology: See rad report (no acute process, but severe spinal canal and foraminal stenosis) CXR Radiology: See rad report (no acute) PD MEDICAL DECISION MAKING - ED course ED course: creat is baseline Departure - Departure Disposition: 01 Home, Self Care Clinical Impression: Paresthesia and pain of left extremity, Spinal stenosis in cervical region Condition: Good Instructions: ED Cervical Radiculopathy Follow-Up: Julissa Palmer ARNP [Primary Care Provider] - Prescriptions: predniSONE [Deltasone] 20 mg PO [id number] #[id number] tab Comments: Your heart seems OK today. The EKG is not normal but is similar to prior and more importantly the blood test for a heart attack was negative. The labs were otherwise fine except for mild anemia and renal insufficiency which is not new. The chest xray was fine The CT of your brain was fine The CT of your neck shows significant degenerative changes with stenosis which may be pinching some of the nerve roots as they leave the spinal cord and causing your symptoms. I cannot fix this problem in the ER But I have prescribed a course of steroids to decrease nerve inflammation And I suggest you ask your PMD for a referral to a post closing specialist for further care.
[2018-08-22 10:33] LABS: BASOPHILS % (AUTO) 0.4 %; EOSINOPHILS # (AUTO) 0.4 10^3/uL (0.0-0.7); EOSINOPHILS % (AUTO) 4.1 %; HGB - HEMOGLOBIN 11.3 g/dL (14.0-18.0); LYMPHOCYTES # (AUTO) 2.1 10^3/uL (1.5-3.5); LYMPHOCYTES % (AUTO) 22.6 %; MEAN CORPUSCULAR HEMOGLOBIN 29.3 pg (27.0-31.0); MEAN CORPUSCULAR HGB CONC 32.4 g/dL (32.0-36.0); MEAN CORPUSCULAR VOLUME 90.2 fL (80.0-94.0); MEAN PLATELET VOLUME 8.7 fL (7.4-11.4); MONOCYTES # (AUTO) 0.6 10^3/uL (0.0-1.0); NEUTROPHILS % (AUTO) 65.9 %; PLT - PLATELET COUNT 212 10^3/uL (130-450); RED BLOOD COUNT 3.85 10^6/uL (4.70-6.10); RED CELL DISTRIBUTION WIDTH 14.4 % (12.0-15.0); WHITE BLOOD COUNT 9.2 x10^3/uL (4.8-10.8)
[2018-08-22 10:45] LABS: ALBUMIN 3.1 g/dL (3.2-5.5); ALBUMIN/GLOBULIN RATIO 0.9 (1.0-2.2); BILIRUBIN,TOTAL 0.3 mg/dL (0.2-1.0); CALCIUM 8.7 mg/dL (8.5-10.3); CREATININE 2.9 mg/dL (0.6-1.2); TOTAL PROTEIN 6.4 g/dL (6.7-8.2)
--- NOTE | 2018-08-22 11:11 | XRAY Report ---
Reason: chest pain Procedure Date: 08/22/2018 Accession Number: [id number] / [id number] Procedure: XR - Chest 1 View X-Ray CPT Code: 77143 FULL RESULT: EXAM: CHEST RADIOGRAPHY EXAM DATE: 08/22/2018 10:44 AM. CLINICAL HISTORY: Chest pain. COMPARISON: 04/24/2018. TECHNIQUE: 1 view. FINDINGS: Lungs/Pleura: No focal opacities evident. No pleural effusion. No pneumothorax. Mediastinum: Within exam limitations, the cardiomediastinal contour is normal. IMPRESSION: No acute process. RADIA
--- NOTE | 2018-08-22 13:06 | CT Report ---
Reason: L arm tingling Procedure Date: 08/22/2018 Accession Number: [id number] / [id number] Procedure: CT - Head W/O CPT Code: FULL RESULT: EXAM: CT HEAD EXAM DATE: 08/22/2018 12:02 PM. CLINICAL HISTORY: L arm tingling. COMPARISON: None. TECHNIQUE: Multiaxial CT images were obtained from the foramen magnum to the vertex. Reformats: Sagittal and coronal. IV contrast: None. In accordance with CT protocol optimization, one or more of the following dose reduction techniques were utilized for this exam: automated exposure control, adjustment of mA and/or KV based on patient size, or use of iterative reconstructive technique. FINDINGS: Parenchyma: No intraparenchymal hemorrhage. No evidence of mass, midline shift, or CT findings of infarction. Higginbotham-white differentiation is distinct. Extraaxial Spaces: Normal for age. No subdural or epidural collections identified. Ventricles: Normal in size and position. Sinuses and Orbits: Imaged paranasal sinuses, orbits, and mastoids show no significant abnormality. Bones: No evidence of fracture or calvarial defect. Other: None. IMPRESSION: No acute intracranial abnormality. RADIA
--- NOTE | 2018-08-22 13:22 | CT Report ---
Reason: L arm tingling Procedure Date: 08/22/2018 Accession Number: [id number] / [id number] Procedure: CT - Cervical Spine W/O CPT Code: FULL RESULT: EXAM: CT CERVICAL SPINE WITHOUT CONTRAST DATE: 08/22/2018 12:04 PM. HISTORY: L arm tingling. COMPARISONS: None. TECHNIQUE: Thin-section axial images were acquired of the cervical spine without contrast. Post-processing: Coronal and sagittal reformats. Other: None. In accordance with CT protocol optimization, one or more of the following dose reduction techniques were utilized for this exam: automated exposure control, adjustment of mA and/or KV based on patient size, or use of iterative reconstructive technique. FINDINGS: Evaluation of the mid and lower cervical spine is mildly limited by beam attenuation. Alignment: No scoliosis or spondylolisthesis. Bones: No acute fracture. Interspace Levels/Facets: There is moderate disk degeneration and endplate proliferation at C5-C6 and C6-C7. Multilevel moderate facet arthrosis, greater on the left side there is severe bilateral foraminal stenosis and severe or spinal canal stenosis at C5-C6. Moderate spinal canal stenosis at C6-C7 and moderate bilateral foraminal stenosis. Musculature: Mild fatty atrophy. Other: The paravertebral and prevertebral soft tissues are unremarkable. The lung apices are clear. IMPRESSION: No acute fracture. Severe spinal canal and bilateral foraminal stenosis at C5-C6. RADIA
[2018-08-22 13:48] VITALS: BP 174/98
== END 2018-08-22 13:57 | disposition home or self-care (01) ==
LOC: ED 09:57
DX: R20.2 Paresthesia of skin (principal); M79.602 Pain in left arm; M48.02 Spinal stenosis, cervical region; R94.31 Abnormal electrocardiogram [ECG] [EKG]; I25.10 Atherosclerotic heart disease of native coronary artery without angina pectoris; I25.2 Old myocardial infarction; I10 Essential (primary) hypertension; E78.00 Pure hypercholesterolemia, unspecified; Z87.891 Personal history of nicotine dependence; Z79.82 Long term (current) use of aspirin; Z79.4 Long term (current) use of insulin
CPT/HCPCS: 36415; 70450; 71045; 72125; 80053; 83690; 84484; 85025; 93005; 99283

== ENCOUNTER 2018-08-31 08:00 | Outpatient (CLI) | payer OTHER ==
[2018-08-31 20:16] LABS: HB2 TOTAL 12.5 g/dL; HEMOGLOBIN A1C 0.98 g/dL; HEMOGLOBIN A1C % 9.3 % (4.6-6.2)
== END 2018-08-31 23:59 | disposition home or self-care (01) ==
LOC: LAB.N 08:00
PROVIDERS: ATTEND Nurse Practitioner Gerontology
DX: E11.65 Type 2 diabetes mellitus with hyperglycemia (principal)
CPT/HCPCS: 36415; 83036

== ENCOUNTER 2018-10-09 10:57 | Emergency (ER) | payer OTHER ==
[2018-10-09 11:41] LABS: BASOPHILS # (AUTO) 0.1 10^3/uL (0.0-0.1); BASOPHILS % (AUTO) 0.6 %; EOSINOPHILS # (AUTO) 0.2 10^3/uL (0.0-0.7); EOSINOPHILS % (AUTO) 2.2 %; HGB - HEMOGLOBIN 11.4 g/dL (14.0-18.0); LYMPHOCYTES # (AUTO) 1.8 10^3/uL (1.5-3.5); LYMPHOCYTES % (AUTO) 19.2 %; MEAN CORPUSCULAR HEMOGLOBIN 30.1 pg (27.0-31.0); MEAN CORPUSCULAR HGB CONC 33.2 g/dL (32.0-36.0); MEAN CORPUSCULAR VOLUME 90.6 fL (80.0-94.0); MEAN PLATELET VOLUME 9.1 fL (7.4-11.4); MONOCYTES # (AUTO) 0.5 10^3/uL (0.0-1.0); MONOCYTES % (AUTO) 5.5 %; NEUTROPHILS # (AUTO) 6.8 10^3/uL (1.5-6.6); NEUTROPHILS % (AUTO) 72.5 %; PLT - PLATELET COUNT 198 10^3/uL (130-450); RED BLOOD COUNT 3.79 10^6/uL (4.70-6.10); RED CELL DISTRIBUTION WIDTH 14.8 % (12.0-15.0); WHITE BLOOD COUNT 9.3 x10^3/uL (4.8-10.8)
[2018-10-09 12:00] LABS: ALBUMIN/GLOBULIN RATIO 0.8 (1.0-2.2); BILIRUBIN,TOTAL 0.7 mg/dL (0.2-1.0); CALCIUM 8.9 mg/dL (8.5-10.3); TOTAL PROTEIN 6.7 g/dL (6.7-8.2)
[2018-10-09 12:21] LABS: BILIRUBIN,URINE NEGATIVE (NEGATIVE); GLUCOSE, URINE (UA) 500 mg/dL (NEGATIVE); KETONES,URINE (UA) NEGATIVE (NEGATIVE); LEUKOCYTE ESTERASE, URINE NEGATIVE (NEGATIVE); NITRITE,URINE NEGATIVE (NEGATIVE); OCCULT BLOOD,URINE TRACE-LYSE (NEGATIVE); PROTEIN,URINE >=300 mg/dL (NEGATIVE); UROBILINOGEN,URINE 0.2 (NORMAL) E.U./dL (NORMAL)
[2018-10-09 12:23] LABS: CLARITY,URINE CLEAR (CLEAR)
[2018-10-09 12:31] LABS: BACTERIA,URINE Rare /HPF (None Seen); RBC,URINE 0-5 /HPF (0-5); SQUAMOUS EPITHELIAL CELL,UR RARE Squamous (<= Few)
[2018-10-09] MEDS ORDERED: SODIUM CHLORIDE 0.9% 1,000 ML IV ONE ×2 (12:41)
--- NOTE | 2018-10-09 12:41 | ED Physician Documentation ---
PD HPI ABD PAIN - Stated complaint Stated Complaint: LOWER ABDOMINAL PAIN - Chief complaint Chief Complaint: Abd Pain - History obtained from History obtained from: Patient - History of Present Illness Timing - onset: Yesterday Timing - duration: Days (2) Timing - details: Gradual onset Pain level max: 2 Pain level now: 1 Quality: Pain Location: RLQ Radiation: No: Chest, , Lower back, Left flank, Left shoulder, Right flank, Right shoulder, Upper back Improved by: No: Eating, Laying still, Vomiting, BM, Position, Meds Worsened by: Palpation Associated symptoms: No: Fever, Nausea, Vomiting, Hematemesis, Diarrhea, Constipation, Melena, Hematochezia, Dysuria, Hematuria, Chest pain, Dizzy Similar symptoms before: Has not had sx before - Additional information Additional information: 62-year-old male presents to the emergency department complaining of right lower quadrant abdominal pain since yesterday. Believes that he still has his appendix. He has chronic kidney disease as well as a recent OR, approximately 6 months ago. Denies any fevers, nausea, vomiting. Review of Systems Ten Systems: 10 systems reviewed and negative Constitutional: denies: Fever, Chills Respiratory: denies: Cough GI: denies: Vomiting, Diarrhea Skin: denies: Rash Musculoskeletal: denies: Neck pain, Back pain Neurologic: denies: Headache PD PAST MEDICAL HISTORY - Past Medical History Past Medical History: Yes Cardiovascular: Hypertension, High cholesterol, [place], Other Endocrine/Autoimmune: Type 2 diabetes, Other GI: Chronic constipation, Pancreatitis, Other HEENT: Macular degeneration, Other - Past Surgical History Past Surgical History: Yes General: Cholecystectomy - Present Medications Home Medications: Ambulatory Orders Medication Instructions Recorded Confirmed Lisinopril 10 mg PO DAILY 12/17/12 09/22/16 hydroCHLOROthiazide [Hydrodiuril] 50 mg PO DAILY 10/14/13 04/24/18 Amlodipine Besylate [Norvasc] 10 mg PO QPM 05/31/14 04/24/18 Insulin Glulisine [Apidra Solostar] 8 - 12 units SQ AC 08/15/15 04/24/18 Aspirin [Aspir-Low] 81 mg PO DAILY 09/22/16 04/24/18 Atorvastatin [Lipitor] 20 mg PO DAILY 09/22/16 04/24/18 - Allergies Allergies/Adverse Reactions: Allergies Allergy/AdvReac Type Severity Reaction Status Date / Time prednisone AdvReac Hives Verified 10/09/18 11:08 - Social History Does the pt smoke?: No Smoking Status: Never smoker Does the pt drink ETOH?: No Does the pt have substance abuse?: No - Immunizations Immunizations are current?: Yes - POLST Patient has POLST: No PD ED PE NORMAL - Vitals Vital signs reviewed: Yes - General General: Alert and oriented X 3, No acute distress - HEENT HEENT: Moist mucous membranes - Neck Neck: Supple, no meningeal sign - Cardiac Cardiac: RRR - Respiratory Respiratory: No respiratory distress, Clear bilaterally - Abdomen Abdomen: Soft, Non distended, Other (Mild tenderness to palpation right lower quadrant. No peritoneal signs) - Back Back: No CVA TTP, No spinal TTP - Derm Derm: Warm and dry - Extremities Extremities: No edema - Neuro Neuro: Alert and oriented X 3 Results - Vitals Vitals: Vital Signs - 24 hr 10/09/18 10/09/18 10/09/18 11:04 13:34 13:55 Temperature 36.4 C L 36.8 C Heart Rate 74 75 74 Respiratory 14 18 20 Rate Blood Pressure 144/84 H 166/92 H 159/93 H O2 Saturation 100 99 Oxygen O2 Source Room air - Labs Labs: Laboratory Tests 10/09/18 10/09/18 10/09/18 11:28 11:28 12:00 WBC 9.3 RBC 3.79 L Hgb 11.4 L Hct 34.4 L MCV 90.6 MCH 30.1 MCHC 33.2 RDW 14.8 Plt Count 198 MPV 9.1 Neut # (Auto) 6.8 H Lymph # (Auto) 1.8 [place] # (Auto) 0.5 Eos # (Auto) 0.2 Baso # (Auto) 0.1 Absolute Nucleated RBC 0.00 Nucleated RBC % 0.0 Sodium 138 Potassium 5.4 H Chloride 107 Carbon Dioxide 23 Anion Gap 8.0 BUN 52 H Creatinine 3.0 H Estimated GFR (MDRD) 21 L Glucose 312 H Calcium 8.9 Total Bilirubin 0.7 AST 20 ALT 25 Alkaline Phosphatase 138 H Total Protein 6.7 Albumin 3.0 L Globulin 3.7 Albumin/Globulin Ratio 0.8 L Lipase 25 Urine Color YELLOW Urine Clarity CLEAR Urine pH 6.0 Ur Specific [place] 1.025 Urine Protein >=300 Urine Glucose (UA) 500 H Urine Ketones NEGATIVE Urine Occult Blood TRACE-LYSE Urine Nitrite NEGATIVE Urine Bilirubin NEGATIVE Urine Urobilinogen 0.2 (NORMAL) Ur Leukocyte Esterase NEGATIVE Urine RBC 0-5 Urine WBC 0-3 Ur Squamous Epith Cells RARE Squamous Urine Bacteria Rare Urine Casts 3-5 Hyaline Casts Ur Microscopic Review INDICATED Urine Culture Comments NOT INDICATED - Rads (name of study) CT abd/pelvis Radiology: Prelim report reviewed, EMP read contemporaneously, See rad report (Limited examination with normal appendix and no overt fat stranding in the right lower quadrant. ) PD MEDICAL DECISION MAKING - ED course Complexity details: reviewed results, re-evaluated patient, considered differential, d/w patient ED course: 62-year-old male with right lower quadrant abdominal pain of unclear etiology. Normal appendix on CT scan. No significant lab abnormalities. We will continue supportive care and follow-up with his doctor. He is very well-appearing, nontoxic. Afebrile. Tolerating p.o. without difficulty. Patient counseled regarding signs and symptoms for which I believe and urgent re-evaluation would be necessary. Patient with good understanding of and agreement to plan and is comfortable going home at this time This document was made in part using voice recognition software. While efforts are made to proofread this document, sound alike and grammatical errors may occur. Patient does have mildly elevated potassium, his potassium has been in this range in the past. Does have chronic renal failure. Given IV fluids and will have him have his potassium rechecked with his doctor. Departure - Departure Disposition: 01 Home, Self Care Clinical Impression: Hyperkalemia Abdominal pain Qualifiers: Abdominal location: right lower quadrant Qualified Code(s): R10.31 - Right lower quadrant pain Condition: Good Instructions: ED Abdominal Pain Unkn Cause, ED Potassium Excess Follow-Up: Julissa Palmer ARNP [Primary Care Provider] - Within 3 Days Comments: You need to have your potassium rechecked in 2-3 days with your doctor. They can put in an order for this to be done in the lab. Return if you worsen. Your CT scan and other laboratory testing is unremarkable at this time. Discharge Date/Time: 10/09/18 14:02
--- NOTE | 2018-10-09 13:32 | CT Report ---
Reason: RLQ abd pain Procedure Date: 10/09/2018 Accession Number: [id number] / [id number] Procedure: CT - Abdomen/Pelvis WO CPT Code: FULL RESULT: EXAM: CT ABDOMEN AND PELVIS (CT KUB) EXAM DATE: 10/09/2018 01:10 PM. CLINICAL HISTORY: RLQ abdominal pain. COMPARISONS: Abdomen/pelvis w/o 08/29/2017 9:52 PM. TECHNIQUE: Routine axial helical CT imaging was performed through the abdomen and pelvis without IV contrast. Reconstructions: Coronal and sagittal. In accordance with CT protocol optimization, one or more of the following dose reduction techniques were utilized for this exam: automated exposure control, adjustment of mA and/or KV based on patient size, or use of iterative reconstructive technique. FINDINGS: The examination is limited by absence of oral or intravenous contrast. Lung Bases: Marked coronary calcifications. Right Kidney/Ureter: No stones, hydronephrosis, or hydroureter. Mild symmetric perinephric fat stranding. Left Kidney/Ureter: No stones, hydronephrosis, or hydroureter. Mild symmetric perinephric fat stranding. Other Solid Organs: Noncontrast images of the solid organs are grossly unremarkable. Gallbladder/Bile Ducts: Status post cholecystectomy. Peritoneal Cavity: No free fluid, free air or artemio adenopathy. Bowel is grossly unremarkable. Appendix is normal. Pelvic Organs: No bladder stones or wall thickening. Noncontrast images of the visualized pelvic organs are unremarkable. Vasculature: Atherosclerosis. Other: None. IMPRESSION: Limited examination with normal appendix and no overt fat stranding in the right lower quadrant. RADIA
[2018-10-09 13:57] VITALS: BP 159/93
== END 2018-10-09 14:02 | disposition home or self-care (01) ==
LOC: ED 10:57
DX: E87.5 Hyperkalemia (principal); R10.31 Right lower quadrant pain; I12.9 Hypertensive chronic kidney disease with stage 1 through stage 4 chronic kidney disease, or unspecified chronic kidney disease; E11.22 Type 2 diabetes mellitus with diabetic chronic kidney disease; N18.9 Chronic kidney disease, unspecified; Z79.4 Long term (current) use of insulin; I25.2 Old myocardial infarction; E78.00 Pure hypercholesterolemia, unspecified; Z79.82 Long term (current) use of aspirin
CPT/HCPCS: 36415; 74176; 80053; 81001; 81003; 83690; 85025; 87086; 96360; 99283

== ENCOUNTER 2018-10-15 09:32 | Outpatient (CLI) | payer OTHER ==
[2018-10-15 12:38] LABS: HGB - HEMOGLOBIN 11.4 g/dL (14.0-18.0); MEAN CORPUSCULAR HEMOGLOBIN 30.2 pg (27.0-31.0); MEAN CORPUSCULAR HGB CONC 33.1 g/dL (32.0-36.0); MEAN CORPUSCULAR VOLUME 91.4 fL (80.0-94.0); MEAN PLATELET VOLUME 10.5 fL (7.4-11.4); RED BLOOD COUNT 3.77 10^6/uL (4.70-6.10); RED CELL DISTRIBUTION WIDTH 14.9 % (12.0-15.0); WHITE BLOOD COUNT 8.6 x10^3/uL (4.8-10.8)
[2018-10-15 13:49] LABS: CALCIUM 8.7 mg/dL (8.5-10.3)
== END 2018-10-15 23:59 | disposition home or self-care (01) ==
LOC: LAB.N 09:32
PROVIDERS: ATTEND Internal Medicine Nephrology
DX: N05.9 Unspecified nephritic syndrome with unspecified morphologic changes (principal); D70.9 Neutropenia, unspecified; D63.1 Anemia in chronic kidney disease; D50.0 Iron deficiency anemia secondary to blood loss (chronic)
CPT/HCPCS: 36415; 80048; 82728; 83540; 84466; 85027

== ENCOUNTER 2018-11-02 11:02 | Emergency (ER) | payer OTHER ==
[2018-11-02 11:17] VITALS: BP 136/85
--- NOTE | 2018-11-02 12:40 | XRAY Report ---
Reason: pain Procedure Date: 11/02/2018 Accession Number: [id number] / [id number] Procedure: XR - Foot 3 View RT CPT Code: FULL RESULT: EXAM: RIGHT FOOT RADIOGRAPHY EXAM DATE: 11/02/2018 12:22 PM. CLINICAL HISTORY: Pain. COMPARISON: FOOT 3 VIEW BILAT 08/02/2015 10:22 AM. TECHNIQUE: 3 views. FINDINGS: Bones: No acute fracture or dislocation is detected. Degenerative changes about the midfoot and proximal metacarpals appear similar to 2015 and decreased sensitivity for detection of fracture in this area. Joints: Presumably neuropathic advanced degenerative changes of the midfoot, similar to 2015. Soft Tissues: Vascular calcifications are noted. IMPRESSION: Advanced midfoot degenerative changes, similar to 2015. RADIA
--- NOTE | 2018-11-02 13:09 | ED Physician Documentation ---
PD HPI LOWER EXT INJURY - Stated complaint Stated Complaint: FOOT PX - Chief complaint Chief Complaint: Ext Problem - History obtained from History obtained from: Patient - History of Present Illness PD HPI LOW EXT INJURY LOCATION: Right (Without specific injury he developed pain in the area of the proximal fifth metatarsal over the last 2 days and has difficulty walking. He has had a similar problem in the past with the other foot. He is worried because he has a skin stress test scheduled for a week from today and does not know if he will be able to get on the treadmill.) Review of Systems Constitutional: denies: Fever, Chills Musculoskeletal: denies: Neck pain, Back pain Neurologic: denies: Generalized weakness, Focal weakness PD PAST MEDICAL HISTORY - Past Medical History Past Medical History: Yes Cardiovascular: Hypertension, High cholesterol, [place], Other Endocrine/Autoimmune: Type 2 diabetes, Other GI: Chronic constipation, Pancreatitis, Other HEENT: Macular degeneration, Other - Past Surgical History Past Surgical History: Yes General: Cholecystectomy - Present Medications Home Medications: Ambulatory Orders Medication Instructions Recorded Confirmed hydroCHLOROthiazide [Hydrodiuril] 50 mg PO DAILY 10/14/13 04/24/18 Insulin Glulisine [Apidra Solostar] 8 - 12 units SQ AC 08/15/15 04/24/18 Aspirin [Aspir-Low] 81 mg PO DAILY 09/22/16 04/24/18 Atorvastatin [Lipitor] 20 mg PO DAILY 09/22/16 04/24/18 Insulin Glargine [Lantus Solostar] 0 unit 11/02/18 11/02/18 Losartan [Cozaar] 25 mg PO DAILY 11/02/18 11/02/18 Metoprolol Succinate 25 mg PO 11/02/18 11/02/18 - Allergies Allergies/Adverse Reactions: Allergies Allergy/AdvReac Type Severity Reaction Status Date / Time prednisone AdvReac Hives Verified 11/02/18 11:17 - Social History Does the pt smoke?: No Smoking Status: Never smoker Does the pt drink ETOH?: No Does the pt have substance abuse?: No - Immunizations Immunizations are current?: Yes - POLST Patient has POLST: No PD ED PE NORMAL - Vitals Vital signs reviewed: Yes - General General: Alert and oriented X 3, No acute distress - Extremities Extremities: Other (Right foot is not warm or red. He is tender over the fifth metatarsal but without deformity.) - Neuro Neuro: Alert and oriented X 3, Normal speech Results - Vitals Vitals: Vital Signs - 24 hr 11/02/18 11:16 Temperature 36.8 C Heart Rate 72 Respiratory 20 Rate Blood Pressure 136/85 H O2 Saturation 100 Oxygen O2 Source Room air - Rads (name of study) R foot 3v Radiology: EMP read contemporaneously (Advanced degenerative changes without obvious acute fracture.) PD MEDICAL DECISION MAKING - ED course ED course: 63-year-old diabetic male presents with foot pain in the area of the Fifth metatarsal. There is no evidence of infection and the x-ray shows advanced degenerative changes without acute fracture. We will put him up in a boot and advised him to stay off of it for a couple of days and follow-up with his physician for advanced imaging if not better. Departure - Departure Disposition: 01 Home, Self Care Clinical Impression: Right foot pain Condition: Good Record reviewed to determine appropriate education?: Yes Instructions: Arthritis Foot Comments: As discussed wear the boot and stay off of it. Return for new or worsening symptoms. Follow-up with your doctor in a week if not better. If within the next couple of days it does not seem like he will be able to do the stress test next week, call your telegraphic typewriter repairer and they can either put it off or change it to a chemical stress test.
== END 2018-11-02 13:17 | disposition home or self-care (01) ==
LOC: ED 11:02
DX: M79.671 Pain in right foot (principal); I10 Essential (primary) hypertension; E11.9 Type 2 diabetes mellitus without complications; Z79.4 Long term (current) use of insulin
CPT/HCPCS: 99283

== ENCOUNTER 2018-11-04 08:00 | Outpatient (CLI) | payer OTHER ==
[2018-11-04 19:42] LABS: BASOPHILS % (AUTO) 0.5 %; EOSINOPHILS # (AUTO) 0.2 10^3/uL (0.0-0.7); EOSINOPHILS % (AUTO) 2.9 %; HGB - HEMOGLOBIN 11.1 g/dL (14.0-18.0); LYMPHOCYTES # (AUTO) 1.8 10^3/uL (1.5-3.5); MEAN CORPUSCULAR HEMOGLOBIN 30.2 pg (27.0-31.0); MEAN CORPUSCULAR HGB CONC 32.5 g/dL (32.0-36.0); MEAN CORPUSCULAR VOLUME 92.9 fL (80.0-94.0); MEAN PLATELET VOLUME 9.9 fL (7.4-11.4); MONOCYTES # (AUTO) 0.5 10^3/uL (0.0-1.0); NEUTROPHILS # (AUTO) 5.6 10^3/uL (1.5-6.6); NEUTROPHILS % (AUTO) 68.6 %; PLT - PLATELET COUNT 197 10^3/uL (130-450); RED BLOOD COUNT 3.69 10^6/uL (4.70-6.10); RED CELL DISTRIBUTION WIDTH 14.9 % (12.0-15.0); WHITE BLOOD COUNT 8.1 x10^3/uL (4.8-10.8)
[2018-11-04 20:11] LABS: BUN - BLOOD UREA NITROGEN 53 mg/dL (6-20); CALCIUM 8.6 mg/dL (8.5-10.3); CARBON DIOXIDE - CO2 22 mmol/L (21-32); CHLORIDE 106 mmol/L (101-111); CHOL/HDL RATIO 3.6 (<5.0); CHOLESTEROL 141 mg/dL; CREATININE 3.2 mg/dL (0.6-1.2); GFR - MDRD 20 (>89); GLUCOSE 244 mg/dL (70-100); HDL CHOLESTEROL 39 mg/dL; LDL CHOLESTEROL,CALCULATED 47 mg/dL; LDL/HDL RATIO 1.2 (<3.6); SODIUM 136 mmol/L (135-145); VLDL CHOLESTEROL 55 mg/dL
== END 2018-11-04 23:59 | disposition home or self-care (01) ==
LOC: LAB.N 08:00
PROVIDERS: ATTEND Internal Medicine Cardiovascular Disease
DX: N18.4 Chronic kidney disease, stage 4 (severe) (principal); E11.49 Type 2 diabetes mellitus with other diabetic neurological complication; Z79.4 Long term (current) use of insulin; E11.65 Type 2 diabetes mellitus with hyperglycemia
CPT/HCPCS: 36415; 80048; 80061; 83721; 85025

== ENCOUNTER 2018-12-01 08:00 | Outpatient (CLI) | payer OTHER ==
[2018-12-01 20:10] LABS: HB2 TOTAL 12.3 g/dL; HEMOGLOBIN A1C 1.2 g/dL; HEMOGLOBIN A1C % 11.1 % (4.6-6.2)
== END 2018-12-01 08:01 | disposition home or self-care (01) ==
LOC: LAB.N 08:00
PROVIDERS: ATTEND Nurse Practitioner Gerontology
DX: E11.65 Type 2 diabetes mellitus with hyperglycemia (principal)
CPT/HCPCS: 36415; 83036

== ENCOUNTER 2019-01-13 10:35 | Outpatient (CLI) | payer OTHER ==
[2019-01-13 12:49] LABS: MEAN CORPUSCULAR HEMOGLOBIN 30.5 pg (27.0-31.0); MEAN CORPUSCULAR HGB CONC 32.8 g/dL (32.0-36.0); MEAN CORPUSCULAR VOLUME 92.9 fL (80.0-94.0); MEAN PLATELET VOLUME 9.8 fL (7.4-11.4); RED BLOOD COUNT 3.61 10^6/uL (4.70-6.10); RED CELL DISTRIBUTION WIDTH 13.6 % (12.0-15.0); WHITE BLOOD COUNT 8.7 x10^3/uL (4.8-10.8)
[2019-01-13 13:02] LABS: CALCIUM 8.6 mg/dL (8.5-10.3); CREATININE 2.9 mg/dL (0.6-1.2)
[2019-01-13 13:34] LABS: CREATININE,URINE 38.7 mg/dL; PROTEIN/CREATININE RATIO,URINE 8.6 (<=0.2)
== END 2019-01-13 23:59 | disposition home or self-care (01) ==
LOC: LAB.N 10:35
PROVIDERS: ATTEND Internal Medicine Nephrology
DX: N05.9 Unspecified nephritic syndrome with unspecified morphologic changes (principal); D70.9 Neutropenia, unspecified; D63.1 Anemia in chronic kidney disease; R80.9 Proteinuria, unspecified
CPT/HCPCS: 36415; 80048; 82570; 84156; 85027

== ENCOUNTER 2019-02-14 21:18 | Emergency (ER) | payer OTHER ==
[2019-02-14 21:49] LABS: BASOPHILS % (AUTO) 0.4 %; EOSINOPHILS # (AUTO) 0.4 10^3/uL (0.0-0.7); EOSINOPHILS % (AUTO) 3.6 %; HGB - HEMOGLOBIN 11.2 g/dL (14.0-18.0); LYMPHOCYTES # (AUTO) 2.3 10^3/uL (1.5-3.5); LYMPHOCYTES % (AUTO) 22.5 %; MEAN CORPUSCULAR HEMOGLOBIN 29.7 pg (27.0-31.0); MEAN CORPUSCULAR VOLUME 95.8 fL (80.0-94.0); MEAN PLATELET VOLUME 11.4 fL (7.4-11.4); MONOCYTES # (AUTO) 0.7 10^3/uL (0.0-1.0); MONOCYTES % (AUTO) 7.1 %; NEUTROPHILS # (AUTO) 6.6 10^3/uL (1.5-6.6); NEUTROPHILS % (AUTO) 65.2 %; PLT - PLATELET COUNT 214 10^3/uL (130-450); RED BLOOD COUNT 3.77 10^6/uL (4.70-6.10); RED CELL DISTRIBUTION WIDTH 12.8 % (12.0-15.0); WHITE BLOOD COUNT 10.1 x10^3/uL (4.8-10.8)
--- NOTE | 2019-02-14 21:49 | ED Physician Documentation ---
History of Present Illness - Stated complaint Stated Complaint: DIZZY,CAN'T BALANCE - Chief complaint Chief Complaint: Neuro - History obtained from History obtained from: Patient - History of Present Illness Timing: How many hours ago (4) - Additonal information Additional information: The patient is a 63 year-old male with a history of insulin-dependent diabetes, chronic renal insufficiency, pancreatitis, and previous NE, who presents with dizziness that started 4 hours prior to arrival. He describes it as feeling off balance and listing to the left when he tries to walk. He denies lightheadedness. He has had slight nausea, without vomiting. He denies headache, chest pain, shortness of breath. He denies history of similar symptoms in the past. Review of Systems Constitutional: denies: Fever Eyes: reports: Other (Chronic visual impairment, with no acute change.) Ears: denies: Ear pain, Tinnitus/ringing Nose: denies: Congestion Throat: denies: Sore throat Cardiac: denies: Chest pain / pressure Respiratory: denies: Dyspnea, Cough GI: reports: Nausea (mild). denies: Abdominal Pain, Vomiting : denies: Dysuria Skin: denies: Rash Musculoskeletal: reports: Extremity pain (discomfort right thigh.), Extremity swelling (right leg). denies: Back pain Neurologic: denies: Focal weakness, Numbness, Difficulty speaking, Confused, Headache PD PAST MEDICAL HISTORY - Past Medical History Cardiovascular: Hypertension, High cholesterol, NE, Other Endocrine/Autoimmune: Type 2 diabetes, Other GI: Chronic constipation, Pancreatitis, Other HEENT: Macular degeneration, Other - Past Surgical History Past Surgical History: Yes General: Cholecystectomy - Present Medications Home Medications: Ambulatory Orders Medication Instructions Recorded Confirmed hydroCHLOROthiazide [Hydrodiuril] 50 mg PO DAILY 10/14/13 04/24/18 Insulin Glulisine [Apidra Solostar] 8 - 12 units SQ AC 08/15/15 04/24/18 Aspirin [Aspir-Low] 81 mg PO DAILY 09/22/16 04/24/18 Atorvastatin [Lipitor] 20 mg PO DAILY 09/22/16 04/24/18 Insulin Glargine [Lantus Solostar] 0 unit 11/02/18 11/02/18 Losartan [Cozaar] 25 mg PO DAILY 11/02/18 11/02/18 Metoprolol Succinate 25 mg PO 11/02/18 11/02/18 - Allergies Allergies/Adverse Reactions: Allergies Allergy/AdvReac Type Severity Reaction Status Date / Time prednisone AdvReac Hives Verified 02/14/19 21:27 - Social History Does the pt smoke?: No Smoking Status: Never smoker Does the pt drink ETOH?: No Does the pt have substance abuse?: No - Immunizations Immunizations are current?: Yes - POLST Patient has POLST: No PD ED PE NORMAL - Vitals Vital signs reviewed: Yes (hypertensive) - General General: Alert and oriented X 3, Well developed/nourished - HEENT HEENT: Atraumatic, PERRL, EOMI, Pharynx benign - Neck Neck: Supple, no meningeal sign, No adenopathy, No JVD - Cardiac Cardiac: RRR - Respiratory Respiratory: No respiratory distress, Clear bilaterally - Abdomen Abdomen: Soft, Non tender - Back Back: No CVA TTP - Derm Derm: No rash - Extremities Extremities: No calf tenderness / cord, Other (2+ right pedal edema; 1+ left pedal edema.) - Neuro Neuro: Alert and oriented X 3, No motor deficit, No sensory deficit, Normal speech, Other (Intact rapid alternating movements with hands and heel-dooley test.) Eye Opening: Spontaneous Motor: Obeys Commands Verbal: Oriented GCS Score: 15 Results - Vitals Vitals: Vital Signs - 24 hr 02/14/19 21:20 Temperature 36.2 C L Heart Rate 95 Respiratory 19 Rate Blood Pressure 184/112 H O2 Saturation 100 Oxygen O2 Source Room air - EKG (time done) 21:26 Rate: Rate (enter#) (95) Rhythm: LAE Douglass: Normal QRS: LVH Ischemia: Q waves (in II, III, and aVF, consistent with old inferior NE.) Compare to prior EKG: Unchanged from prior EKG Computer interpretation: Agree with computer - Labs Labs: Laboratory Tests 02/14/19 02/14/19 02/14/19 21:40 21:40 22:50 WBC 10.1 RBC 3.77 L Hgb 11.2 L Hct 36.1 L MCV 95.8 H MCH 29.7 MCHC 31.0 L RDW 12.8 Plt Count 214 MPV 11.4 Neut # (Auto) 6.6 Lymph # (Auto) 2.3 [place] # (Auto) 0.7 Eos # (Auto) 0.4 Baso # (Auto) 0.0 Absolute Nucleated RBC 0.00 Nucleated RBC % 0.0 Sodium 138 Potassium 4.8 Chloride 104 Carbon Dioxide 22 Anion Gap 12.0 BUN 47 H Creatinine 3.1 H Estimated GFR (MDRD) 21 L Glucose 236 H Calcium 8.8 Total Bilirubin 0.5 AST 17 ALT 20 Alkaline Phosphatase 109 Total Protein 6.7 Albumin 3.0 L Globulin 3.7 Albumin/Globulin Ratio 0.8 L Lipase 26 Urine Color YELLOW Urine Clarity CLEAR Urine pH 6.0 Ur Specific Bronson 1.020 Urine Protein >=300 H Urine Glucose (UA) 500 H Urine Ketones NEGATIVE Urine Occult Blood TRACE-LYSE Urine Nitrite NEGATIVE Urine Bilirubin NEGATIVE Urine Urobilinogen 0.2 (NORMAL) Ur Leukocyte Esterase NEGATIVE Urine RBC 0-5 Urine WBC 0-3 Ur Squamous Epith Cells RARE Squamous Urine Bacteria None Seen Urine Casts 0-2 Hyaline Casts Ur Microscopic Review INDICATED Urine Culture Comments NOT INDICATED - Rads (name of study) Head CT Radiology: Prelim report reviewed, EMP read contemporaneously, See rad report (No acute or focal intracranial abnormality.) Venous Duplex left LE Radiology: Prelim report reviewed, See rad report (No evidence for DVT.) PD MEDICAL DECISION MAKING - ED course Complexity details: reviewed old records, reviewed results, re-evaluated patient, considered differential, d/w patient ED course: The reason for the patient's feeling of dizziness is uncertain at this time. His physical examination reveals no acute neurologic deficit. Head CT reveals no acute intracranial abnormality. CBC and chemistry panel are significant for elevated BUN and creatinine of 47 and 3.1. These are levels that are within the range that he has chronically. Venous duplex of his right lower extremity reveals no evidence of deep venous thrombosis. Following the results of the CT scan, the patient was observed ambulating in the emergency department. He demonstrates no cerebellar instability. He is able to walk with his white cane quite vigorously considering his near blindness, without any listing to the left or any other cerebellar abnormality detected. I discussed with him the results of his work-up, the importance of outpatient follow-up, as well as potentially worrisome signs or symptoms that should prompt reevaluation in the emergency department. Departure - Departure Disposition: 01 Home, Self Care Clinical Impression: Dizziness of unknown cause Diabetes mellitus with hyperglycemia, with long-term current use of insulin Qualifiers: Diabetes mellitus type: type 2 Qualified Code(s): E11.65 - Type 2 diabetes mellitus with hyperglycemia; Z79.4 - jail (current) use of insulin Chronic renal insufficiency Qualifiers: Chronic kidney disease stage: unspecified stage Qualified Code(s): N18.9 - Chronic kidney disease, unspecified Condition: Stable Instructions: ED Dizziness UKO Follow-Up: Julissa Palmer ARNP [Primary Care Provider] - Comments: Continue your medications as previously prescribed. Follow-up with your primary physician this week. Call to schedule an appointment. Return to the emergency department if you develop increasing dizziness or otherwise worsening symptoms.
[2019-02-14 21:53] LABS: ALBUMIN/GLOBULIN RATIO 0.8 (1.0-2.2); BILIRUBIN,TOTAL 0.5 mg/dL (0.2-1.0); CALCIUM 8.8 mg/dL (8.5-10.3); CREATININE 3.1 mg/dL (0.6-1.2); TOTAL PROTEIN 6.7 g/dL (6.7-8.2)
--- NOTE | 2019-02-14 22:34 | CT Report ---
Reason: dizziness; listing to the left Procedure Date: 02/14/2019 Accession Number: [id number] / [id number] Procedure: CT - HEAD WO CPT Code: FULL RESULT: EXAM: CT HEAD EXAM DATE: 02/14/2019 09:59 PM. CLINICAL HISTORY: Dizziness; listing to the left. COMPARISON: CERVICAL SPINE W/O 08/22/2018 11:51 AM HEAD W/O 08/22/2018 11:51 AM. TECHNIQUE: Multiaxial CT images were obtained from the foramen magnum to the vertex. Reformats: Sagittal and coronal. IV contrast: None. In accordance with CT protocol optimization, one or more of the following dose reduction techniques were utilized for this exam: automated exposure control, adjustment of mA and/or KV based on patient size, or use of iterative reconstructive technique. FINDINGS: Parenchyma: No intraparenchymal hemorrhage. No evidence of mass, midline shift, or CT findings of infarction. Higginbotham-white differentiation is distinct. Extraaxial Spaces: Normal for age. No subdural or epidural collections identified. Ventricles: Normal in size and position. Sinuses and Orbits: Imaged paranasal sinuses, orbits, and mastoids show no significant abnormality. Bones: No evidence of fracture or calvarial defect. Other: None. IMPRESSION: No acute or focal intracranial abnormality. RADIA
[2019-02-14 22:58] LABS: BILIRUBIN,URINE NEGATIVE (NEGATIVE); GLUCOSE, URINE (UA) 500 mg/dL (NEGATIVE); KETONES,URINE (UA) NEGATIVE (NEGATIVE); LEUKOCYTE ESTERASE, URINE NEGATIVE (NEGATIVE); NITRITE,URINE NEGATIVE (NEGATIVE); OCCULT BLOOD,URINE TRACE-LYSE (NEGATIVE); PROTEIN,URINE >=300 mg/dL (NEGATIVE); UROBILINOGEN,URINE 0.2 (NORMAL) E.U./dL (NORMAL)
[2019-02-14 23:01] LABS: CLARITY,URINE CLEAR (CLEAR)
--- NOTE | 2019-02-14 23:13 | Ultrasound Report ---
Reason: right leg swelling, thigh pain Procedure Date: 02/14/2019 Accession Number: [id number] / [id number] Procedure: US - Duplex Ext Veins Right CPT Code: FULL RESULT: EXAM: RIGHT LOWER EXTREMITY VENOUS ULTRASOUND EXAM DATE: 02/14/2019 09:58 PM. CLINICAL HISTORY: Right leg swelling, thigh pain. COMPARISON: DUPLEX EXT VEINS RIGHT 12/15/2017 4:45 PM. TECHNIQUE: Real-time sonographic vascular imaging was performed by the decorator inspector through the lower extremity utilizing both color-flow and Doppler spectral analysis. Multiple circulation representative static images were saved for review. FINDINGS: Common Femoral Vein (CFV): Normal. CFV-GSV Junction: Normal. Profunda Femoral Vein (PFV): Normal. Femoral Vein (FV) Prox: Normal. Femoral Vein (FV) Mid: Normal. Femoral Vein (FV) Dist: Normal. Popliteal Vein: Normal. Posterior Tibial Veins: Normal. Peroneal Veins: Normal. Contralateral Side CFV: Normal. Other: Nonocclusive peripheral calcification noted in a patent superficial vein in the right popliteal fossa. No acute thrombus seen. IMPRESSION: No evidence for deep venous thrombosis. RADIA
[2019-02-14 23:15] LABS: BACTERIA,URINE None Seen /HPF (None Seen); RBC,URINE 0-5 /HPF (0-5); SQUAMOUS EPITHELIAL CELL,UR RARE Squamous (<= Few)
[2019-02-14 23:16] LABS: CASTS, URINE 0-2 Hyaline Casts /LPF
[2019-02-14 23:45] VITALS: BP 152/99
== END 2019-02-14 23:55 | disposition home or self-care (01) ==
LOC: ED 21:18
DX: R42 Dizziness and giddiness (principal); E11.22 Type 2 diabetes mellitus with diabetic chronic kidney disease; I12.9 Hypertensive chronic kidney disease with stage 1 through stage 4 chronic kidney disease, or unspecified chronic kidney disease; N18.9 Chronic kidney disease, unspecified; I25.2 Old myocardial infarction; Z79.4 Long term (current) use of insulin
CPT/HCPCS: 36415; 70450; 80053; 81001; 81003; 83690; 85025; 87086; 93005; 99283; 99285

== ENCOUNTER 2019-03-16 08:00 | Outpatient (CLI) | payer OTHER ==
[2019-03-16 19:19] LABS: BASOPHILS % (AUTO) 0.4 %; EOSINOPHILS # (AUTO) 0.3 10^3/uL (0.0-0.7); EOSINOPHILS % (AUTO) 3.4 %; HGB - HEMOGLOBIN 10.8 g/dL (14.0-18.0); LYMPHOCYTES # (AUTO) 1.8 10^3/uL (1.5-3.5); LYMPHOCYTES % (AUTO) 20.7 %; MEAN CORPUSCULAR HEMOGLOBIN 30.6 pg (27.0-31.0); MEAN CORPUSCULAR HGB CONC 31.2 g/dL (32.0-36.0); MEAN PLATELET VOLUME 11.5 fL (7.4-11.4); MONOCYTES # (AUTO) 0.6 10^3/uL (0.0-1.0); MONOCYTES % (AUTO) 7.5 %; NEUTROPHILS # (AUTO) 5.6 10^3/uL (1.5-6.6); NEUTROPHILS % (AUTO) 66.7 %; PLT - PLATELET COUNT 233 10^3/uL (130-450); RED BLOOD COUNT 3.53 10^6/uL (4.70-6.10); RED CELL DISTRIBUTION WIDTH 13.4 % (12.0-15.0); WHITE BLOOD COUNT 8.5 x10^3/uL (4.8-10.8)
[2019-03-16 19:31] LABS: CALCIUM 9.1 mg/dL (8.5-10.3); CREATININE 3.4 mg/dL (0.6-1.2)
[2019-03-16 20:30] LABS: HB2 TOTAL 12.1 g/dL; HEMOGLOBIN A1C 0.91 g/dL
[2019-03-17 14:19] LABS: CREATININE,URINE 65.1 mg/dL; PROTEIN/CREATININE RATIO,URINE 9.2 (<=0.2)
== END 2019-03-16 23:59 | disposition home or self-care (01) ==
LOC: LAB.N 08:00
PROVIDERS: ATTEND Internal Medicine Nephrology
DX: E11.22 Type 2 diabetes mellitus with diabetic chronic kidney disease (principal); N18.4 Chronic kidney disease, stage 4 (severe); Z79.4 Long term (current) use of insulin; N05.9 Unspecified nephritic syndrome with unspecified morphologic changes; D70.9 Neutropenia, unspecified; D63.1 Anemia in chronic kidney disease
CPT/HCPCS: 36415; 80048; 82570; 82985; 83036; 83880; 84156; 85025

== ENCOUNTER 2019-05-03 08:00 | Outpatient (CLI) | payer OTHER ==
[2019-05-03 13:12] LABS: ALBUMIN 3.2 g/dL (3.2-5.5); ALBUMIN/GLOBULIN RATIO 0.9 (1.0-2.2); BILIRUBIN,TOTAL 0.5 mg/dL (0.2-1.0); CALCIUM 9.3 mg/dL (8.5-10.3); CREATININE 3.6 mg/dL (0.6-1.2); TOTAL PROTEIN 6.7 g/dL (6.7-8.2)
== END 2019-05-03 23:59 | disposition home or self-care (01) ==
LOC: LAB.N 08:00
PROVIDERS: ATTEND Nurse Practitioner Gerontology
DX: E87.5 Hyperkalemia (principal); E11.65 Type 2 diabetes mellitus with hyperglycemia
CPT/HCPCS: 36415; 80053

== ENCOUNTER 2019-05-04 10:33 | Outpatient (CLI) | payer OTHER ==
[2019-05-04 12:16] LABS: BASOPHILS % (AUTO) 0.3 %; EOSINOPHILS # (AUTO) 0.3 10^3/uL (0.0-0.7); EOSINOPHILS % (AUTO) 3.4 %; HGB - HEMOGLOBIN 10.2 g/dL (14.0-18.0); LYMPHOCYTES # (AUTO) 1.9 10^3/uL (1.5-3.5); LYMPHOCYTES % (AUTO) 18.8 %; MEAN CORPUSCULAR HEMOGLOBIN 30.4 pg (27.0-31.0); MEAN CORPUSCULAR HGB CONC 30.8 g/dL (32.0-36.0); MEAN CORPUSCULAR VOLUME 98.5 fL (80.0-94.0); MEAN PLATELET VOLUME 11.9 fL (7.4-11.4); MONOCYTES # (AUTO) 0.7 10^3/uL (0.0-1.0); MONOCYTES % (AUTO) 6.5 %; NEUTROPHILS % (AUTO) 69.9 %; PLT - PLATELET COUNT 185 10^3/uL (130-450); RED BLOOD COUNT 3.36 10^6/uL (4.70-6.10); RED CELL DISTRIBUTION WIDTH 13.2 % (12.0-15.0)
[2019-05-04 12:29] LABS: CALCIUM 8.7 mg/dL (8.5-10.3); CREATININE 3.6 mg/dL (0.6-1.2)
[2019-05-04 13:51] LABS: CREATININE,URINE 121.5 mg/dL; PROTEIN/CREATININE RATIO,URINE 5.3 (<=0.2)
== END 2019-05-04 23:59 | disposition home or self-care (01) ==
LOC: LAB.N 10:33
PROVIDERS: ATTEND Internal Medicine Nephrology
DX: N05.9 Unspecified nephritic syndrome with unspecified morphologic changes (principal); I50.32 Chronic diastolic (congestive) heart failure; D70.9 Neutropenia, unspecified; D63.1 Anemia in chronic kidney disease; E11.9 Type 2 diabetes mellitus without complications; R80.9 Proteinuria, unspecified
CPT/HCPCS: 36415; 80048; 82570; 83880; 84156; 85025

== ENCOUNTER 2019-06-28 13:49 | Outpatient (CLI) | payer OTHER ==
[2019-06-28 19:13] LABS: HB2 TOTAL 9.6 g/dL; HEMOGLOBIN A1C 0.71 g/dL; HEMOGLOBIN A1C % 8.9 % (4.6-6.2)
== END 2019-06-28 23:59 | disposition home or self-care (01) ==
LOC: LAB.N 13:49
PROVIDERS: ATTEND Nurse Practitioner Gerontology
DX: E11.65 Type 2 diabetes mellitus with hyperglycemia (principal)
CPT/HCPCS: 36415; 83036

== ENCOUNTER 2019-07-12 09:57 | Outpatient (CLI) | payer OTHER ==
[2019-07-12 16:18] LABS: HGB - HEMOGLOBIN 9.4 g/dL (14.0-18.0); MEAN CORPUSCULAR HEMOGLOBIN 31.2 pg (27.0-31.0); MEAN CORPUSCULAR HGB CONC 31.1 g/dL (32.0-36.0); MEAN CORPUSCULAR VOLUME 100.3 fL (80.0-94.0); MEAN PLATELET VOLUME 11.7 fL (7.4-11.4); RED BLOOD COUNT 3.01 10^6/uL (4.70-6.10); RED CELL DISTRIBUTION WIDTH 12.9 % (12.0-15.0); WHITE BLOOD COUNT 8.5 x10^3/uL (4.8-10.8)
[2019-07-12 16:31] LABS: CALCIUM 8.8 mg/dL (8.5-10.3); CREATININE 3.9 mg/dL (0.6-1.2); PHOSPHORUS 4.6 mg/dL (2.5-4.6)
[2019-07-14 22:41] LABS: ALBUMIN 2.9 g/dL (3.8-4.8); ALPHA 1 GLOBULIN 0.3 g/dL (0.2-0.3); ALPHA 2 GLOBULIN 0.9 g/dL (0.5-0.9); BETA 1 GLOBULIN 0.3 g/dL (0.4-0.6); BETA 2 GLOBULIN 0.3 g/dL (0.2-0.5); GAMMA GLOBULIN 0.7 g/dL (0.8-1.7)
== END 2019-07-12 23:59 | disposition home or self-care (01) ==
LOC: LAB.N 09:57
PROVIDERS: ATTEND Internal Medicine Nephrology
DX: N05.9 Unspecified nephritic syndrome with unspecified morphologic changes (principal); N18.9 Chronic kidney disease, unspecified; D63.1 Anemia in chronic kidney disease; D70.9 Neutropenia, unspecified; D47.2 Monoclonal gammopathy; E83.30 Disorder of phosphorus metabolism, unspecified; N25.81 Secondary hyperparathyroidism of renal origin
CPT/HCPCS: 36415; 80048; 81599; 82570; 83970; 84100; 84155; 84156; 84165; 84166; 85027

== ENCOUNTER 2019-09-21 07:45 | Outpatient (CLI) | payer MEDICARE, OTHER ==
--- NOTE | 2019-09-21 10:57 | Ultrasound Report ---
Reason: STAGE 4 KIDNEY DISEASE Procedure Date: 09/21/2019 Accession Number: [id number] / [id number] Procedure: US - Abdomen Complete CPT Code: Final Report FULL RESULT: EXAM: ABDOMEN ULTRASOUND EXAM DATE: 09/21/2019 08:33 AM. CLINICAL HISTORY: Stage IV renal disease, prerenal transplant evaluation. COMPARISON: None. TECHNIQUE: Real-time scanning was performed with static images obtained. FINDINGS: Liver: The liver parenchyma is mildly echogenic diffusely. No evidence for cirrhosis or focal mass. 14.0 cm. Main portal vein flow: Hepatopetal. Gallbladder: Surgically absent. Biliary System: Common bile duct measures 6 mm. No intrahepatic or extrahepatic ductal dilatation. Pancreas: Obscured by bowel gas. Kidneys: Right: 10.6 cm longitudinally. Echogenic cortex noted. No contour-deforming mass, stones, or hydronephrosis. Left: 10.3 cm longitudinally. Echogenic cortex noted. No contour-deforming mass, stones, or hydronephrosis. Spleen: 10.6 cm. Normal in size and echotexture. Aorta and Inferior Vena Cava: Unremarkable. Other: None. IMPRESSION: 1. Mildly fatty infiltrated liver. 2. Renal cortical hyperechogenicity bilaterally, nonspecific finding of medical renal disease. No hydronephrosis. 3. Status post cholecystectomy. RADIA
--- NOTE | 2019-09-22 09:07 | Ultrasound Report ---
Reason: STAGE 4 KIDNEY DISEASE Procedure Date: 09/21/2019 Accession Number: [id number] / [id number] Procedure: US - Duplex Aorta Complete CPT Code: Final Report FULL RESULT: EXAM: AORTIC DOPPLER ULTRASOUND EXAM DATE: 09/21/2019 08:57 AM CLINICAL HISTORY: Stage 4 kidney disease. COMPARISON: None. TECHNIQUE: Real-time sonographic imaging of retroperitoneal vascular structures, including color-flow, Doppler flow and spectral analysis was performed by the director of operations support. Multiple public utilities sales representative static images were saved for review. FINDINGS: Aorta: The abdominal aorta was adequately visualized. No evidence for abdominal aortic aneurysm. Aorta: Proximal: Not seen. Mid: Transverse: 2.1 x 2.3 cm. Distal: Transverse: 2.1 x 2.5 cm. Caliber WNL: Yes. Plaque visualized: Yes. Iliacs: Right Iliac: Transverse: 1.4 x 1.5 cm. Left Iliac: Transverse: 1.4 x 1.5 cm. Doppler: Proximal Aorta: Not seen. Mid Aorta PSV: 103.0 cm/sec. Distal Aorta PSV: 119.0 cm/sec. Proximal RCIA PSV: 106.0 cm/sec. Proximal LCIA PSV: 110.0 cm/sec. Right EIA: 96.0 cm/sec. Left EIA: 94.0 cm/sec. Iliac Vessels: The visualized proximal common iliac arteries are normal in caliber. Other: Study limited by body habitus and bowel gas. IMPRESSION: Proximal aorta is obscured. Otherwise, no abdominal aortic aneurysm. RADIA
--- NOTE | 2019-09-22 09:07 | Ultrasound Report ---
Reason: STAGE 4 KIDNEY DISEASE Procedure Date: 09/21/2019 Accession Number: [id number] / [id number] Procedure: US - Carotid Doppler Complete CPT Code: Final Report FULL RESULT: EXAM: BILATERAL CAROTID AND VERTEBRAL ARTERY DUPLEX DOPPLER ULTRASOUND: EXAM DATE: 09/21/2019 08:35 AM CLINICAL HISTORY: Stage 4 kidney disease. COMPARISON: DUPLEX LWR EXT ARTERIAL BILAT 09/21/2019 9:22 AM. TECHNIQUE: Grayscale imaging, color Doppler, and duplex spectral Doppler were used to evaluate the carotid and vertebral arteries bilaterally. Static images were obtained. FINDINGS: Mild atheromatous plaques are present in the right carotid bulb extending into the internal carotid artery. However, no hemodynamically significant stenoses are noted. Mild atheromatous plaques are present in the left carotid bulb extending into the internal carotid artery. However, no hemodynamically significant stenoses are noted. Visualized portions of the neck soft tissues are grossly unremarkable. Normal antegrade flow is present in bilateral vertebral arteries. VELOCITIES (cm/sec): VELOCITIES: Right CCA mid: PSV 77 cm/sec CCA dist: PSV 73 cm/sec ICA prox: PSV 75 cm/sec, EDV 26 cm/sec ICA mid: PSV 73 cm/sec, EDV 27 cm/sec ICA dist: PSV 98 cm/sec, EDV 37 cm/sec ECA: PSV 80 cm/sec Vert: PSV 35 cm/sec ICA/CCA: 1.27 Left CCA mid: PSV 93 cm/sec CCA dist: PSV 77 cm/sec ICA prox: PSV 69 cm/sec, EDV 25 cm/sec ICA mid: PSV 85 cm/sec, EDV 34 cm/sec ICA dist: PSV 54 cm/sec, EDV 22 cm/sec ECA: PSV 132 cm/sec Vert: PSV 52 cm/sec ICA/CCA: 0.91 ICA diameter stenosis: Right: <50% by velocity and <70% by NASCET criteria. Left: <50% by velocity and <70% by NASCET criteria. IMPRESSION: 1. Mild bilateral carotid artery plaquing. 2. In the right carotid artery there are no elevated carotid artery velocities to suggest hemodynamically significant stenosis. 3. In the left carotid artery there are no elevated carotid artery velocities to suggest hemodynamically significant stenosis. 4. Normal antegrade flow is present in bilateral vertebral arteries. General Recommendations: Stenosis =50% ICA - Follow-up ultrasound 6-12 months Stenosis <50% ICA - High Risk Patient with plaque - Follow-up ultrasound 1-2 years Normal Study but High Risk Patient - Follow-up ultrasound 3-5 years Management recommendations and diagnostic criteria are based on current IAC endorsed standards in Carotid Artery Stenosis: Grayscale and Doppler Ultrasound Diagnosis. Validated velocity measurements with angiographic measurements and velocity criteria are extrapolated from diameter data as defined by the Society of Radiologists in Ultrasound Consensus Conference Radiology 2003; 229;340-346. RADIA
--- NOTE | 2019-09-22 09:08 | Ultrasound Report ---
Reason: STAGE 4 KIDNEY DISEASE Procedure Date: 09/21/2019 Accession Number: [id number] / [id number] Procedure: US - Duplex Lwr Ext Arterial Bilat CPT Code: Final Report FULL RESULT: EXAM: BILATERAL LOWER EXTREMITY ARTERIAL DOPPLER ULTRASOUND EXAM DATE: 09/21/2019 09:22 AM CLINICAL HISTORY: Stage 4 kidney disease. COMPARISON: None. TECHNIQUE: Real-time sonographic vascular imaging was performed by the organizational development manager, utilizing color-flow, Doppler flow, and spectral analysis. Multiple appliance service representative static images were saved for review. FINDINGS: Atheromatous plaques are noted. No hemodynamically significant stenosis, occlusion, aneurysm or dissection. Normal triphasic waveforms are seen throughout both lower extremities. Right Lower Extremity: TOMATO GRADER: PSV 103 cm/sec. PSFA: PSV 82 cm/sec. MSFA: PSV 103 cm/sec. DSFA: PSV 83 cm/sec. PFA: PSV 69 cm/sec. POP: PSV 77 cm/sec. MURALI: PSV 89 cm/sec. HOG SLAUGHTERER: PSV 51 cm/sec. LEANA: PSV 62 cm/sec. DPA: PSV 70 cm/sec. Left Lower Extremity: TOMATO GRADER: PSV 91 cm/sec. PSFA: PSV 75 cm/sec. MSFA: PSV 83 cm/sec. DSFA: PSV 83 cm/sec. PFA: PSV 68 cm/sec. POP: PSV 75 cm/sec. MURALI: PSV 70 cm/sec. HOG SLAUGHTERER: PSV 46 cm/sec. LEANA: PSV 47 cm/sec. DPA: PSV 67 cm/sec. IMPRESSION: 1. No hemodynamically significant stenosis, occlusion or dissection. RADIA
== END 2019-09-21 07:46 | disposition home or self-care (01) ==
LOC: DI 07:45
PROVIDERS: ATTEND Internal Medicine Nephrology
DX: Z13.9 Encounter for screening, unspecified (principal); N18.4 Chronic kidney disease, stage 4 (severe); K76.0 Fatty (change of) liver, not elsewhere classified; Z90.49 Acquired absence of other specified parts of digestive tract
CPT/HCPCS: 76700; 93880; 93925; 93978

== ENCOUNTER 2019-10-18 07:00 | Outpatient (CLI) | payer MEDICARE, OTHER ==
[2019-10-18 12:20] LABS: BASOPHILS % (AUTO) 0.3 %; EOSINOPHILS # (AUTO) 0.4 10^3/uL (0.0-0.7); EOSINOPHILS % (AUTO) 3.9 %; HGB - HEMOGLOBIN 9.9 g/dL (14.0-18.0); LYMPHOCYTES # (AUTO) 1.7 10^3/uL (1.5-3.5); LYMPHOCYTES % (AUTO) 17.7 %; MEAN CORPUSCULAR HEMOGLOBIN 31.1 pg (27.0-31.0); MEAN CORPUSCULAR HGB CONC 31.4 g/dL (32.0-36.0); MEAN CORPUSCULAR VOLUME 99.1 fL (80.0-94.0); MEAN PLATELET VOLUME 11.3 fL (7.4-11.4); MONOCYTES # (AUTO) 0.6 10^3/uL (0.0-1.0); MONOCYTES % (AUTO) 6.7 %; NEUTROPHILS # (AUTO) 6.5 10^3/uL (1.5-6.6); NEUTROPHILS % (AUTO) 69.9 %; PLT - PLATELET COUNT 224 10^3/uL (130-450); RED BLOOD COUNT 3.18 10^6/uL (4.70-6.10); RED CELL DISTRIBUTION WIDTH 13.1 % (12.0-15.0); WHITE BLOOD COUNT 9.3 x10^3/uL (4.8-10.8)
[2019-10-18 12:40] LABS: CALCIUM 9.1 mg/dL (8.5-10.3); CREATININE 3.8 mg/dL (0.6-1.2)
[2019-10-18 13:03] LABS: % IRON SATURATION 16 % (20-50); IRON 49 ug/dL (45-182); TOTAL IRON BINDING CAPACITY 301 ug/dL (250-450); TRANSFERRIN 215 mg/dL (180-329)
[2019-10-18 13:05] LABS: CHOL/HDL RATIO 3.4 (<5.0); CHOLESTEROL 134 mg/dL; HDL CHOLESTEROL 39 mg/dL; LDL CHOLESTEROL,CALCULATED 71 mg/dL; LDL/HDL RATIO 1.8 (<3.6); VLDL CHOLESTEROL 24 mg/dL
[2019-10-18 13:06] LABS: FOLATE 10.92 ng/mL (5.90 - >24.8)
[2019-10-18 13:39] LABS: HB2 TOTAL 10.4 g/dL; HEMOGLOBIN A1C 0.97 g/dL; HEMOGLOBIN A1C % 10.7 % (4.6-6.2)
== END 2019-10-18 23:59 | disposition home or self-care (01) ==
LOC: LAB.N 07:00
PROVIDERS: ATTEND Nurse Practitioner Gerontology
DX: I12.9 Hypertensive chronic kidney disease with stage 1 through stage 4 chronic kidney disease, or unspecified chronic kidney disease (principal); E11.65 Type 2 diabetes mellitus with hyperglycemia; E11.22 Type 2 diabetes mellitus with diabetic chronic kidney disease; N18.4 Chronic kidney disease, stage 4 (severe); Z79.4 Long term (current) use of insulin; E78.5 Hyperlipidemia, unspecified; D70.9 Neutropenia, unspecified; D63.1 Anemia in chronic kidney disease; D50.0 Iron deficiency anemia secondary to blood loss (chronic)
CPT/HCPCS: 36415; 80048; 80061; 82607; 82728; 82746; 82985; 83036; 83540; 83721; 84466; 85025; 85027

== ENCOUNTER 2020-02-15 10:27 | Outpatient (CLI) | payer MEDICARE ==
[2020-02-15 11:24] LABS: HGB - HEMOGLOBIN 8.4 g/dL (14.0-18.0); MEAN CORPUSCULAR HEMOGLOBIN 30.4 pg (27.0-31.0); MEAN CORPUSCULAR HGB CONC 30.7 g/dL (32.0-36.0); MEAN CORPUSCULAR VOLUME 99.3 fL (80.0-94.0); MEAN PLATELET VOLUME 11.2 fL (7.4-11.4); RED BLOOD COUNT 2.76 10^6/uL (4.70-6.10); RED CELL DISTRIBUTION WIDTH 13.9 % (12.0-15.0); WHITE BLOOD COUNT 8.8 x10^3/uL (4.8-10.8)
[2020-02-15 11:37] LABS: CALCIUM 8.8 mg/dL (8.5-10.3); CREATININE 5.2 mg/dL (0.6-1.2)
[2020-02-15 11:55] LABS: CREATININE,URINE 84.5 mg/dL; PROTEIN/CREATININE RATIO,URINE 4.6 (<=0.2)
== END 2020-02-15 10:28 | disposition home or self-care (01) ==
LOC: LAB 10:27
PROVIDERS: ATTEND Internal Medicine Nephrology
DX: N05.9 Unspecified nephritic syndrome with unspecified morphologic changes (principal); D70.9 Neutropenia, unspecified; D63.1 Anemia in chronic kidney disease; R80.9 Proteinuria, unspecified
CPT/HCPCS: 36415; 80048; 82570; 84156; 85027

== ENCOUNTER 2020-05-29 10:24 | Outpatient (CLI) | payer MEDICARE ==
[2020-05-29 10:49] LABS: BASOPHILS % (AUTO) 0.4 %; EOSINOPHILS # (AUTO) 0.6 10^3/uL (0.0-0.7); EOSINOPHILS % (AUTO) 6.5 %; HGB - HEMOGLOBIN 8.4 g/dL (14.0-18.0); LYMPHOCYTES # (AUTO) 1.9 10^3/uL (1.5-3.5); LYMPHOCYTES % (AUTO) 22.2 %; MEAN CORPUSCULAR HEMOGLOBIN 30.4 pg (27.0-31.0); MEAN CORPUSCULAR HGB CONC 29.7 g/dL (32.0-36.0); MEAN CORPUSCULAR VOLUME 102.5 fL (80.0-94.0); MEAN PLATELET VOLUME 9.8 fL (7.4-11.4); MONOCYTES # (AUTO) 0.7 10^3/uL (0.0-1.0); MONOCYTES % (AUTO) 7.6 %; NEUTROPHILS # (AUTO) 5.3 10^3/uL (1.5-6.6); NEUTROPHILS % (AUTO) 62.2 %; PLT - PLATELET COUNT 187 10^3/uL (130-450); RED BLOOD COUNT 2.76 10^6/uL (4.70-6.10); RED CELL DISTRIBUTION WIDTH 13.4 % (12.0-15.0); WHITE BLOOD COUNT 8.5 x10^3/uL (4.8-10.8)
[2020-05-29 11:01] LABS: CALCIUM 9.2 mg/dL (8.5-10.3); CREATININE 4.8 mg/dL (0.6-1.2)
== END 2020-05-29 10:25 | disposition home or self-care (01) ==
LOC: LAB 10:24
PROVIDERS: ATTEND Internal Medicine Nephrology
DX: N05.9 Unspecified nephritic syndrome with unspecified morphologic changes (principal); D70.9 Neutropenia, unspecified; D63.1 Anemia in chronic kidney disease
CPT/HCPCS: 36415; 80048; 85025

== ENCOUNTER 2020-06-19 10:34 | Outpatient (CLI) | payer MEDICARE ==
[2020-06-19 11:43] LABS: HEMOGLOBIN A1c% 10.2 % (4.27-6.07)
== END 2020-06-19 10:35 | disposition home or self-care (01) ==
LOC: LAB 10:34
PROVIDERS: ATTEND Physician Assistant
DX: E11.22 Type 2 diabetes mellitus with diabetic chronic kidney disease (principal); N18.4 Chronic kidney disease, stage 4 (severe); Z79.4 Long term (current) use of insulin
CPT/HCPCS: 36415; 83036

== ENCOUNTER 2020-08-28 12:06 | Outpatient (CLI) | payer MEDICARE | END 2020-08-28 12:07 | disposition home or self-care (01) | LOC: LAB 12:06 | PROVIDERS: ATTEND Surgery | DX: Z20.822 Contact with and (suspected) exposure to COVID-19 (principal) ==

== ENCOUNTER 2020-09-21 09:46 | Outpatient (CLI) | payer MEDICARE ==
[2020-09-21 10:00] LABS: HGB - HEMOGLOBIN 8.6 g/dL (14.0-18.0); MEAN CORPUSCULAR HEMOGLOBIN 31.7 pg (27.0-31.0); MEAN CORPUSCULAR HGB CONC 31.4 g/dL (32.0-36.0); MEAN CORPUSCULAR VOLUME 101.1 fL (80.0-94.0); MEAN PLATELET VOLUME 10.8 fL (7.4-11.4); RED BLOOD COUNT 2.71 10^6/uL (4.70-6.10); RED CELL DISTRIBUTION WIDTH 13.9 % (12.0-15.0); WHITE BLOOD COUNT 9.3 x10^3/uL (4.8-10.8)
[2020-09-21 10:17] LABS: CALCIUM 8.8 mg/dL (8.5-10.3); CREATININE 6.2 mg/dL (0.6-1.2); PHOSPHORUS 8.2 mg/dL (2.5-4.6)
[2020-09-21 10:58] LABS: PROTEIN/CREATININE RATIO,URINE 9.1 (<=0.2)
[2020-09-21 11:59] LABS: HEMOGLOBIN A1c% 10.6 % (4.27-6.07)
== END 2020-09-21 23:59 | disposition home or self-care (01) ==
LOC: LAB 09:46
PROVIDERS: ATTEND Internal Medicine Nephrology
DX: N05.9 Unspecified nephritic syndrome with unspecified morphologic changes (principal); D70.9 Neutropenia, unspecified; D63.1 Anemia in chronic kidney disease; R80.9 Proteinuria, unspecified; N25.81 Secondary hyperparathyroidism of renal origin; E83.30 Disorder of phosphorus metabolism, unspecified
CPT/HCPCS: 36415; 80048; 82570; 83036; 83970; 84100; 84156; 85027

== ENCOUNTER 2020-10-26 10:15 | Outpatient (CLI) | payer MEDICARE ==
[2020-10-26 10:22] LABS: HCT - HEMATOCRIT 26.3 % (42.0-52.0); HGB - HEMOGLOBIN 8.1 g/dL (14.0-18.0)
[2020-10-26 10:29] LABS: CREATININE 6.1 mg/dL (0.6-1.2)
== END 2020-10-26 23:59 | disposition home or self-care (01) ==
LOC: LAB 10:15
PROVIDERS: ATTEND Internal Medicine Nephrology
DX: N05.9 Unspecified nephritic syndrome with unspecified morphologic changes (principal)
CPT/HCPCS: 36415; 82565; 85014; 85018

== ENCOUNTER 2020-11-28 13:17 | Emergency (ER) | payer MEDICARE ==
--- OUTSIDE RECORDS SUMMARY | 2020-11-28 13:20 | EXTERNAL MEDICAL SUMMARY RPT | Continuity of Care Document ---
:1955 Demographics Phone Unavailable Preferred Language Unknown Marital Status Unknown Nondenominational Affiliation Unknown Race Unknown Ethnic Group Unknown Author Organization [facility] Address [address] [phone] Phone Problems date description facility [id number] Chronic kidney disease, stage 4 [facility] (severe) 20201111 Essential (primary) hypertension [facility] 20201111 alf (current) use of insulin [facility] 20201111 Non-ST elevation (NSTEMI) myocardial [facility] infarction 20201111 Type 2 diabetes mellitus with diabetic [facility] chronic kidney disease Social History date description facility [phone]
--- OUTSIDE RECORDS SUMMARY | 2020-11-28 13:51 | EXTERNAL MEDICAL SUMMARY RPT | Continuity of Care Document ---
:1955 Demographics Phone Unavailable Preferred Language Unknown Marital Status Unknown Shinto Affiliation Unknown Race Unknown Ethnic Group Unknown Author Organization [facility] Address [address] [phone] Phone Problems date description facility 20201111 Chronic kidney disease, stage 4 [facility] (severe) 20201111 Essential (primary) hypertension [facility] 20201111 [facility] (current) use of insulin [facility] 20201111 Non-ST elevation (NSTEMI) myocardial [facility] infarction 20201111 Type 2 diabetes mellitus with diabetic [facility] chronic kidney disease Social History date description facility [phone]
[2020-11-28] MEDS ORDERED: BACITRACIN ZINC OINT 1 PACKET TOP STA (14:24)
--- NOTE | 2020-11-28 14:27 | ED Physician Documentation ---
PD HPI LOWER EXT INJURY - Stated complaint Stated Complaint: R FOOT PX - Chief complaint Chief Complaint: Ext Problem - History obtained from History obtained from: Patient - Additional information Additional information: Patient comes emergency department with chief complaint of skin avulsion on his right foot. Patient states that he is legally blind from diabetic retinopathy and also, has severe diabetic neuropathy in his feet. States had gotten up to make some tea last night when he thought that something was stuck to his foot. He pulled it off and it turned out to be a piece of skin that was loose. Patient states that since he cannot see well, all he could see was that seemed red in the area after he pulled the skin off, so he wanted to get his foot checked. Patient follows regularly with podiatry for his diabetic neuropathy. 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 No fevers or chills. Patient has not noticed any other unusual s ymptoms. No other complaints at this time. Review of Systems Ten Systems: 10 systems reviewed and negative Constitutional: reports: Reviewed and negative Eyes: reports: Reviewed and negative Ears: reports: Reviewed and negative Nose: reports: Reviewed and negative Throat: reports: Reviewed and negative Cardiac: reports: Reviewed and negative Respiratory: reports: Reviewed and negative GI: reports: Reviewed and negative : reports: Reviewed and negative Skin: reports: Reviewed and negative, Other Musculoskeletal: reports: Reviewed and negative Neurologic: reports: Reviewed and negative Psychiatric: reports: Reviewed and negative Endocrine: reports: Reviewed and negative Immunocompromised: reports: Reviewed and negative PD PAST MEDICAL HISTORY - Past Medical History Past Medical History: Yes Cardiovascular: Hypertension, High cholesterol, [place], Other Neuro: Other Endocrine/Autoimmune: Type 2 diabetes, Other GI: Chronic constipation, Pancreatitis, Other : Renal insuffiency HEENT: Macular degeneration, Other - Past Surgical History Past Surgical History: Yes General: Cholecystectomy - Present Medications Home Medications: Ambulatory Orders Medication Instructions Recorded Confirmed hydroCHLOROthiazide [Hydrodiuril] 50 mg PO DAILY 10/14/13 04/24/18 Insulin Glulisine [Apidra Solostar] 8 - 12 units SQ AC 08/15/15 04/24/18 Aspirin [Aspir-Low] 81 mg PO DAILY 09/22/16 04/24/18 Atorvastatin [Lipitor] 20 mg PO DAILY 09/22/16 04/24/18 Insulin Glargine [Lantus Solostar] 0 unit 11/02/18 11/02/18 Losartan [Cozaar] 25 mg PO DAILY 11/02/18 11/02/18 Metoprolol Succinate 25 mg PO 11/02/18 11/02/18 - Allergies Allergies/Adverse Reactions: Allergies Allergy/AdvReac Type Severity Reaction Status Date / Time prednisone AdvReac Hives Verified 11/28/20 13:28 - Social History Does the pt smoke?: No Smoking Status: Never smoker Does the pt drink ETOH?: No Does the pt have substance abuse?: No - Immunizations Immunizations are current?: Yes - POLST Patient has POLST: No PD ED PE NORMAL - Vitals Vital signs reviewed: Yes - General General: Alert and oriented X 3, No acute distress - HEENT HEENT: Atraumatic, PERRL, EOMI, Moist mucous membranes - Neck Neck: Supple, no meningeal sign - Cardiac Cardiac: Strong equal pulses - Respiratory Respiratory: No respiratory distress - Derm Derm: Normal color, Warm and dry, No rash, Other (Full-thickness skin avulsion involving the entire plantar surface of the great toe and area of her the first MTP joint on the plantar aspect. No drainage. Tissue appears healthy. No erythema or edema spreading from the wound. Wound is clean.) - Extremities Extremities: No deformity - Neuro Neuro: Alert and oriented X 3 - Psych Psych: Normal mood, Normal affect Results - Vitals Vitals: Vital Signs - 24 hr 11/28/20 11/28/20 13:28 14:38 Temperature 36.8 C 36.6 C Heart Rate 98 90 Respiratory 18 16 Rate Blood Pressure 121/81 H 120/80 O2 Saturation 100 100 Oxygen O2 Source Room air PD MEDICAL DECISION MAKING - ED course Complexity details: considered differential, d/w patient ED course: I discussed with the patient that at this point in time, his wound actually looks quite good. However, I am concerned about the healing of this, as well as the risk for development of infection, given his diabetic neuropathy and the full-thickness nature of the avulsion. 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 He will probably need wound care follow-up as well, but his manager welding will have to refer him as we cannot from the emergency department. I have advised him to call this afternoon or first thing in the morning to make the soonest possible appointment with his manager welding. We have placed a nonstick dressing. We have discussed the usual indications for return. Departure - Departure Disposition: 01 Home, Self Care Clinical Impression: Avulsion of skin of foot Qualifiers: Encounter type: initial encounter Laterality: right Qualified Code(s): S91.301A - Unspecified open wound, right foot, initial encounter Condition: Stable Instructions: Diabetic Foot Ulcer Dc, ED Foot Care Diabetic, ED Avulsion Dermal Comments: Please call your manager welding's office this afternoon or first thing tomorrow to follow up on for your foot wound and to facilitate getting set up with the [facility]. There is no evidence of infection at this time; however, this wound is at high risk of becoming infected, and it is important that it is closely followed. Discharge Date/Time: 11/28/20 14:38
[2020-11-28 14:39] VITALS: BP 120/80
== END 2020-11-28 14:38 | disposition home or self-care (01) ==
LOC: ED 13:17
DX: S91.301A Unspecified open wound, right foot, initial encounter (principal); X58.XXXA Exposure to other specified factors, initial encounter; E11.42 Type 2 diabetes mellitus with diabetic polyneuropathy; E11.319 Type 2 diabetes mellitus with unspecified diabetic retinopathy without macular edema; Z79.4 Long term (current) use of insulin; I10 Essential (primary) hypertension; Z79.82 Long term (current) use of aspirin
CPT/HCPCS: 99282; 99284; A9270

== ENCOUNTER 2021-01-03 01:05 | Outpatient (CLI) | payer MEDICARE | END 2021-01-03 01:06 | disposition short-term general hospital (02) | LOC: EMS 01:05 | DX: R42 Dizziness and giddiness (principal) | CPT/HCPCS: A0425; A0429 ==

== ENCOUNTER 2021-01-19 18:23 | Outpatient (CLI) | payer MEDICARE | END 2021-01-19 18:24 | disposition short-term general hospital (02) | LOC: EMS 18:23 | DX: R53.1 Weakness (principal); R06.09 Other forms of dyspnea; R11.2 Nausea with vomiting, unspecified; R42 Dizziness and giddiness; R05 Cough; R50.9 Fever, unspecified | CPT/HCPCS: A0425; A0429 ==

== ENCOUNTER 2021-01-26 12:55 | Emergency (ER) | payer MEDICARE ==
--- NOTE | 2021-01-26 13:12 | ED Physician Documentation ---
PD HPI LOWER EXT INJURY - Stated complaint Stated Complaint: GROIN/LEG PX - Chief complaint Chief Complaint: Trauma Ext - History obtained from History obtained from: Patient - History of Present Illness PD HPI LOW EXT INJURY LOCATION: Left, Upper leg, Other (also left hand.) Type of injury: Fall (he fell from his wheelchair forward to left side, with pain left hand, right thigh/groin area. Had had pain in groin area from recent heart cath that area. No noted pain/swelling in calf.) Where injury occurred: Home (he had been in [facility] for dyspnea/weakness and had recent heart cath. Has had continued pain right thigh area. Noting some pain right knee/calf with the fall last night.) Timing - onset: Last night Timing - details: Abrupt onset, Still present (pain mainly left hand as main issue today. But having some right leg pain as well.) Improved by: Rest Worsened by: Moving, Palpating Associated symptoms: No: Weakness, Numbness, Swelling Similar symptoms before: Has not had sx before Recently seen: Admitted ([facility] for chest discomfort/dyspnea.), Other (had dialysis today without problems. Told providers about injuries and was suggested to come to ER for eval.) Review of Systems Constitutional: denies: Fever, Chills Nose: denies: Rhinorrhea / runny nose, Congestion Throat: denies: Sore throat Cardiac: reports: Chest pain / pressure, Calf pain. denies: Pedal edema Respiratory: reports: Dyspnea. denies: Cough GI: denies: Abdominal Pain, Nausea, Vomiting PD PAST MEDICAL HISTORY - Past Medical History Cardiovascular: Hypertension, High cholesterol, MD, Other Neuro: Other Endocrine/Autoimmune: Type 2 diabetes, Other GI: Chronic constipation, Pancreatitis, Other : Dialysis, Renal insuffiency HEENT: Macular degeneration, Other - Past Surgical History Past Surgical History: Yes General: Cholecystectomy - Present Medications Home Medications: Ambulatory Orders Medication Instructions Recorded Confirmed hydroCHLOROthiazide [Hydrodiuril] 50 mg PO DAILY 10/14/13 04/24/18 Insulin Glulisine [Apidra Solostar] 8 - 12 units SQ AC 08/15/15 04/24/18 Aspirin [Aspir-Low] 81 mg PO DAILY 09/22/16 04/24/18 Atorvastatin [Lipitor] 20 mg PO DAILY 09/22/16 04/24/18 Insulin Glargine [Lantus Solostar] 0 unit 11/02/18 11/02/18 Losartan [Cozaar] 25 mg PO DAILY 11/02/18 11/02/18 Metoprolol Succinate 25 mg PO 11/02/18 11/02/18 oxyCODONE [Roxicodone] 5 mg PO Q6H PRN #8 tablet 01/26/21 - Allergies Allergies/Adverse Reactions: Allergies Allergy/AdvReac Type Severity Reaction Status Date / Time prednisone AdvReac Hives Verified 01/26/21 13:06 - Social History Does the pt smoke?: No Smoking Status: Never smoker Does the pt drink ETOH?: No Does the pt have substance abuse?: No - Immunizations Immunizations are current?: Yes - POLST Patient has POLST: No PD ED PE NORMAL - Vitals Vital signs reviewed: Yes - General General: Alert and oriented X 3, Well developed/nourished - HEENT HEENT: Atraumatic, Pharynx benign - Neck Neck: Supple, no meningeal sign, No bony TTP, No adenopathy - Cardiac Cardiac: RRR, No murmur - Respiratory Respiratory: Clear bilaterally, Other (dialysis catheter right anterior chest. ) - Abdomen Abdomen: Soft, Non tender - Derm Derm: Normal color, Warm and dry - Extremities Extremities: Other (right inguinal area without redness, discharge, fluctuance. Some tender right medial lower thigh and right calf area. 1+ edema in both lower legs. Left hand with tenderness mid dorsal area over 4th/5th MC areas. No noted deformity. Left hip with some pain laterally at trochanter without deformity.) - Neuro Neuro: Alert and oriented X 3, No motor deficit, Normal speech Results - Vitals Vitals: Vital Signs - 24 hr 01/26/21 01/26/21 12:59 15:58 Temperature 36.4 C L 37.1 C Heart Rate 103 H 96 Respiratory 16 18 Rate Blood Pressure 130/74 126/72 O2 Saturation 99 96 Oxygen O2 Source Room air - Rads (name of study) duplex right leg Radiology: Prelim report reviewed (no DVTs), See rad report left hand Radiology: Prelim report reviewed (no fractures), See rad report PD MEDICAL DECISION MAKING - ED course Complexity details: reviewed results, considered differential, d/w patient Departure - Departure Disposition: 01 Home, Self Care Clinical Impression: Fall Qualifiers: Encounter type: initial encounter Qualified Code(s): W19.XXXA - Unspecified fall, initial encounter Hand contusion Qualifiers: Encounter type: initial encounter Laterality: left Qualified Code(s): S60.222A - Contusion of left hand, initial encounter Muscle strain of thigh Qualifiers: Encounter type: initial encounter Laterality: unspecified laterality Qualified Code(s): S76.919A - Strain of unspecified muscles, fascia and tendons at thigh level, unspecified thigh, initial encounter Condition: Stable Record reviewed to determine appropriate education?: Yes Follow-Up: SHAYLA PAEZ PA-C [Primary Care Provider] - Prescriptions: oxyCODONE [Roxicodone] 5 mg PO Q6H PRN #8 tablet PRN Reason: Pain Comments: Fracture seen on your hand x-ray. No signs of blood clots in the leg. Wrap and elevate your legs often to reduce swelling. You can use the splint to help with less motion on the hand and wrist until its improved. Continue usual medications. Add pain medicine if needed every 6 hours. I would anticipate improvement over the next several days and resolved by 3 to 5 days. I am prescribing a short course of narcotic pain medication for you. These are potentially dangerous and addictive medications that should be used carefully. These medications may constipate you. Take an [id number] stool softener such as docusate twice daily with plenty of water while taking these medications. If you go 24 hours without a bowel movement, take [id number] MiraLAX, per package instructions. Do not drink or drive while taking these medications. If you received narcotic or sedating medications while in the emergency department do not drive for 24 hours. Store this medication in a safe, secure place and out of reach of children. It is a violation of federal law to give or sell this medication to another person or to use in a manner other than prescribed. The ED will not refill narcotic prescriptions, including prescriptions lost or stolen. You can dispose of unwanted medications at the [facility]'s office or at several pharmacies such as [facility]. Discharge Date/Time: 01/26/21 16:25
[2021-01-26] MEDS ORDERED: oxyCODONE 5 MG TABLET PO STA (13:41)
[2021-01-26] MEDS ORDERED: MUPIROCIN 2% OINT 1 GM TOP STA (13:42)
--- NOTE | 2021-01-26 14:16 | XRAY Report ---
PROCEDURE: Hand 3 View LT INDICATIONS: fall last night TECHNIQUE: 3 views of the left hand acquired. COMPARISON: None. FINDINGS: Bones: No fractures or dislocations. No suspicious bony lesions. Soft tissues: There are diffuse vascular calcifications. There is mild narrowing of the distal interp halangeal joints. IMPRESSION: 1. No fracture or dislocation. Reviewed by: Quinten Avina MD on 01/26/2021 2:15 PM PDT Approved by: Quinten Avina MD on 01/26/2021 2:15 PM PDT Station ID: [id number]
--- NOTE | 2021-01-26 14:50 | Ultrasound Report ---
PROCEDURE: Duplex Ext Veins Right INDICATIONS: right lower leg pain; heart cath 3 wks ago TECHNIQUE: Real-time imaging, as well as color and pulse Doppler interrogation, were performed of the lower extr emity deep veins from the inguinal ligament to the popliteal fossa. COMPARISON: Duplex ultrasound, right lower extremity, 12/15/2017. FINDINGS: The deep veins are normally compressible, and free of intraluminal thrombus. Color and pu lse Doppler demonstrate normal phasic intraluminal flow. There is normal augmentation response to di stal compression maneuver. IMPRESSION: No DVT in the right lower extremity. Reviewed by: Speedy Krause MD on 01/26/2021 2:48 PM PDT Approved by: Speedy Krause MD on 01/26/2021 2:48 PM PDT Station ID: [id number]
[2021-01-26 15:59] VITALS: BP 126/72
== END 2021-01-26 16:25 | disposition home or self-care (01) ==
LOC: ED 12:55
DX: S60.222A Contusion of left hand, initial encounter (principal); S76.911A Strain of unspecified muscles, fascia and tendons at thigh level, right thigh, initial encounter; M25.552 Pain in left hip; W05.0XXA Fall from non-moving wheelchair, initial encounter; Y92.009 Unspecified place in unspecified non-institutional (private) residence as the place of occurrence of the external cause; M79.661 Pain in right lower leg; Z98.61 Coronary angioplasty status; N28.9 Disorder of kidney and ureter, unspecified; Z99.2 Dependence on renal dialysis; I10 Essential (primary) hypertension; E11.9 Type 2 diabetes mellitus without complications; Z79.4 Long term (current) use of insulin; Z79.82 Long term (current) use of aspirin
CPT/HCPCS: 73130; 93971; 99284; A9270

== ENCOUNTER 2021-01-30 17:29 | Emergency (ER) | payer MEDICARE ==
[2021-01-30] MEDS ORDERED: ACETAMINOPHEN 325 MG TABLET PO STA (18:42)
--- NOTE | 2021-01-30 18:45 | ED Physician Documentation ---
PD HPI UPPER EXT INJURY - Stated complaint Stated Complaint: HANDS WON'T WORK - Chief complaint Chief Complaint: Ext Problem - History obtained from History obtained from: Patient - History of Present Illness Location: Right, Left, Wrist Type of injury: Fall Where injury occurred: Home Timing - onset: How many days ago (4) Timing - duration: Days (4) Timing - details: Abrupt onset, Still present Improved by: Rest, Immobilization Worsened by: Moving, Palpating Associated symptoms: Swelling. 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 He comes in today with pain in both wrists and he is having a hard time feeding himself because of this pain. He did not have pain to the right wrist on his initial evaluation that he remembers. He does have pain there today. He has not had a prior history of gout. There is no significant swelling to the wrists. The patient has used Percocet previously with good luck and today he has just the oxycodone and he is not supplementing with Tylenol. Review of Systems Constitutional: denies: Fever Eyes: denies: Decreased vision Ears: denies: Ear pain Nose: denies: Congestion Throat: denies: Sore throat Cardiac: denies: Chest pain / pressure Respiratory: denies: Dyspnea, Cough GI: denies: Abdominal Pain, Nausea, Vomiting : denies: Dysuria, Frequency PD PAST MEDICAL HISTORY - Past Medical History Past Medical History: Yes Cardiovascular: Hypertension, High cholesterol, [place], Other Respiratory: None Neuro: None, Other Endocrine/Autoimmune: Type 2 diabetes, Other GI: Chronic constipation, Pancreatitis, Other : Dialysis, Renal insuffiency HEENT: Macular degeneration, Other Psych: None Musculoskeletal: None Derm: None - Past Surgical History Past Surgical History: Yes General: Cholecystectomy - Present Medications Home Medications: Ambulatory Orders Medication Instructions Recorded Confirmed hydroCHLOROthiazide [Hydrodiuril] 50 mg PO DAILY 10/14/13 01/30/21 Insulin Glulisine [Apidra Solostar] 8 - 12 units SQ AC 08/15/15 01/30/21 Aspirin [Aspir-Low] 81 mg PO DAILY 09/22/16 01/30/21 Atorvastatin [Lipitor] 20 mg PO DAILY 09/22/16 01/30/21 Insulin Glargine [Lantus Solostar] 20 unit SQ HS 11/02/18 01/30/21 Losartan [Cozaar] 25 mg PO DAILY 11/02/18 01/30/21 Metoprolol Succinate 25 mg PO DAILY 11/02/18 01/30/21 Oxycodone HCl/Acetaminophen 1 - 2 each PO Q6H PRN #14 tablet 01/30/21 [Percocet 5-325 mg Tablet] - Allergies Allergies/Adverse Reactions: Allergies Allergy/AdvReac Type Severity Reaction Status Date / Time prednisone AdvReac Hives Verified 01/30/21 17:42 - Social History Does the pt smoke?: No Smoking Status: Former smoker Does the pt drink ETOH?: No Does the pt have substance abuse?: No - Immunizations Immunizations are current?: Yes - POLST Patient has POLST: No PD ED PE NORMAL - Vitals Vital signs reviewed: Yes (Normal) - General General: Alert and oriented X 3, Well developed/nourished, Other (The patient has dramatic pain behavior anytime he moves his hands and ask as if he is helpless to move or touch anything.) - HEENT HEENT: Atraumatic, PERRL, EOMI - Respiratory Respiratory: No respiratory distress - Back Back: No CVA TTP, No spinal TTP - Derm Derm: Normal color, Warm and dry, No rash - Extremities Extremities: No deformity, Other (There is marked tenderness to the right wrist over the dorsal aspect of the ulna and over the hand. 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 However, occult injury cannot be excluded. Recommend short interv al imaging follow-up in 7 to 10 days as clinically indicated for additional evaluation.), EMP read indepedently, See rad report PD MEDICAL DECISION MAKING - ED course Complexity details: reviewed results, re-evaluated patient, considered differential, d/w patient ED course: 65-year-old male with pain to his wrists has not wanting to wear the splint on the left side and today he has pain on the right side. This is the side that he has his shunt on and we were not able to place a splint. We did take a picture of the wrist on the right side no evidence of a fracture. We were able to administer Tylenol to the patient he had some improvement in his pain. Departure - Departure Disposition: 01 Home, Self Care Clinical Impression: Hand contusion Qualifiers: Encounter type: initial encounter Laterality: unspecified laterality Qualified Code(s): S60.229A - Contusion of unspecified hand, initial encounter Right wrist sprain Qualifiers: Encounter type: initial encounter Qualified Code(s): S63.501A - Unspecified sprain of right wrist, initial encounter Condition: Stable Instructions: ED Sprain Hand, ED Sprain Wrist Follow-Up: SHAYLA PAEZ PA-C [Primary Care Provider] - Prescriptions: Oxycodone HCl/Acetaminophen [Percocet 5-325 mg Tablet] 1 - 2 each PO Q6H PRN #14 tablet PRN Reason: pain Discharge Date/Time: 01/30/21 21:33
--- NOTE | 2021-01-30 19:51 | XRAY Report ---
PROCEDURE: Wrist 4 View RT INDICATIONS: fall dorsal ulnar pain TECHNIQUE: 4 views of the wrist were acquired. COMPARISON: None FINDINGS: Bones: No fractures or dislocations. No suspicious bony lesions. Scaphoid view: No visualized fracture. Soft tissues: No suspicious soft tissue calcifications. Vascular calcifications are present. IMPRESSION: No visualized acute fracture or dislocation. However, occult injury cannot be excluded. Recommend natalie rt interval imaging follow-up in 7-10 days as clinically indicated for additional evaluation. Reviewed by: Chelsea Anand MD on 01/30/2021 7:50 PM PDT Approved by: Chelsea Anand MD on 01/30/2021 7:50 PM PDT Station ID: [id number]
[2021-01-30] MEDS ORDERED: oxyCODONE/ACET 5/325 Prepack 4 PO STA (21:09)
[2021-01-30 21:26] VITALS: BP 100/65
== END 2021-01-30 21:33 | disposition home or self-care (01) ==
LOC: ED 17:29
DX: S60.229A Contusion of unspecified hand, initial encounter (principal); W18.30XA Fall on same level, unspecified, initial encounter; Y92.009 Unspecified place in unspecified non-institutional (private) residence as the place of occurrence of the external cause; E11.22 Type 2 diabetes mellitus with diabetic chronic kidney disease; I12.0 Hypertensive chronic kidney disease with stage 5 chronic kidney disease or end stage renal disease; N18.6 End stage renal disease; Z87.891 Personal history of nicotine dependence; Z79.01 Long term (current) use of anticoagulants
CPT/HCPCS: 73110; 99283; 99284; A9270

== ENCOUNTER 2021-09-03 11:53 | Outpatient (CLI) | payer MEDICARE | END 2021-09-03 11:54 | disposition EMS.NT | LOC: EMS 11:53 | DX: R53.83 Other fatigue (principal); Z99.2 Dependence on renal dialysis | CPT/HCPCS: A0425; A0429 ==

== ENCOUNTER 2021-09-03 12:14 | Emergency (ER) | payer MEDICARE ==
[2021-09-03 12:31] VITALS: BP 108/76
--- NOTE | 2021-09-03 12:31 | ED Physician Documentation ---
PD HPI ALTERED MENTAL STATUS - Stated complaint Stated Complaint: AMS - History obtained from History obtained from: Patient, EMS - History of Present Illness Timing - onset: Today Timing - duration: Minutes Timing - details: Abrupt onset (had just finished dialysis and was getting up and noted by nurse to be confused and sleepy. No syncope. No focal weakness. BP was okay. Patient improved enroute, came by EMS.), Now resolved Quality / character: Less responsive, Confused Associated symptoms: General weakness. 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 denies: Focal weakness, Syncope, Headache, Head injury PD PAST MEDICAL HISTORY - Past Medical History Cardiovascular: Hypertension, High cholesterol, [place], Other Respiratory: None Neuro: None, Other Endocrine/Autoimmune: Type 2 diabetes, Other GI: Chronic constipation, Pancreatitis, Other : Dialysis, Renal insuffiency HEENT: Macular degeneration, Other Psych: None Musculoskeletal: None Derm: None - Past Surgical History Past Surgical History: Yes General: Cholecystectomy - Present Medications Home Medications: Ambulatory Orders Medication Instructions Recorded Confirmed hydroCHLOROthiazide [Hydrodiuril] 50 mg PO DAILY 10/14/13 01/30/21 Insulin Glulisine [Apidra Solostar] 8 - 12 units SQ AC 08/15/15 01/30/21 Aspirin [Aspir-Low] 81 mg PO DAILY 09/22/16 01/30/21 Atorvastatin [Lipitor] 20 mg PO DAILY 09/22/16 01/30/21 Insulin Glargine [Lantus Solostar] 20 unit SQ HS 11/02/18 01/30/21 Losartan [Cozaar] 25 mg PO DAILY 11/02/18 01/30/21 Metoprolol Succinate 25 mg PO DAILY 03/25/19 06/22/21 Oxycodone HCl/Acetaminophen 1 - 2 each PO Q6H PRN #14 tablet 01/30/21 [Percocet 5-325 mg Tablet] - Allergies Allergies/Adverse Reactions: Allergies Allergy/AdvReac Type Severity Reaction Status Date / Time prednisone AdvReac Hives Verified 09/03/21 12:22 - Social History Does the pt smoke?: No Smoking Status: Former smoker Does the pt drink ETOH?: No Does the pt have substance abuse?: No - Immunizations Immunizations are current?: Yes - POLST Patient has POLST: No PD ED PE NORMAL - Vitals Vital signs reviewed: Yes - General General: Alert and oriented X 3, No acute distress, Well developed/nourished - HEENT HEENT: Atraumatic, Pharynx benign - Neck Neck: Supple, no meningeal sign, No adenopathy - Cardiac Cardiac: RRR, Other (2/6 murmur left chest) - Respiratory Respiratory: Clear bilaterally - Abdomen Abdomen: Normal bowel sounds, Soft, Non tender - Derm Derm: Normal color, Warm and dry - Extremities Extremities: No tenderness to palpate, No edema, No calf tenderness / cord - Neuro Neuro: Alert and oriented X 3, 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, No motor deficit, No sensory deficit, Normal speech Eye Opening: Spontaneous Motor: Obeys Commands Verbal: Oriented GCS Score: 15 Results - Vitals Vitals: Vital Signs - 24 hr 09/03/21 12:24 Temperature 37.0 C Heart Rate 89 Respiratory 19 Rate Blood Pressure 108/76 O2 Saturation 98 Oxygen O2 Source Room air - Labs Labs: Laboratory Tests 09/03/21 09/03/21 13:05 13:05 WBC 13.3 H RBC 2.45 L Hgb 7.9 L Hct 25.7 L MCV 104.9 H MCH 32.2 H MCHC 30.7 L RDW 23.7 H Plt Count 258 MPV 10.2 Neut # (Auto) 10.6 H Lymph # (Auto) 1.0 L [place] # (Auto) 1.4 H Eos # (Auto) 0.1 Baso # (Auto) 0.0 Absolute Nucleated RBC 0.00 Nucleated RBC % 0.0 Manual Slide Review Indicated Platelet Estimate NORMAL (130-450,000) Platelet Morphology NORMAL APPEARANCE RBC Morph Micro Appear 2+ ANISOCYTOSIS Sodium 132 L Potassium 2.9 L Chloride 93 L Carbon Dioxide 29 Anion Gap 10.0 BUN 18 Creatinine 3.4 H Estimated GFR (MDRD) 18 L Glucose 119 H Calcium 8.0 L Phosphorus 3.9 Magnesium 1.8 Total Bilirubin 2.1 H AST 20 ALT 34 Alkaline Phosphatase 82 Total Protein 5.9 L Albumin 1.7 L Globulin 4.2 Albumin/Globulin Ratio 0.4 L Lipase 20 L PD MEDICAL DECISION MAKING - ED course Complexity details: reviewed results, considered differential, d/w patient Departure - Departure Disposition: 01 Home, Self Care Clinical Impression: Hypokalemia Altered mental status Qualifiers: Altered mental status type: transient alteration of awareness Qualified Code(s): R40.4 - Transient alteration of awareness CKD (chronic kidney disease) Qualifiers: Chronic kidney disease stage: on chronic dialysis Qualified Code(s): N18.6 - End stage renal disease Condition: Stable Record reviewed to determine appropriate education?: Yes Comments: Continue usual medications and intake. Unclear the cause of your symptoms earlier. Your potassium level is low here and we gave you a oral supplement just here. considering your dialysis and chronic renal failure, I would not add particularly potassium supplement beyond that. Recheck if recurring episodes. Discharge Date/Time: 09/03/21 14:20
[2021-09-03 13:10] LABS: BASOPHILS % (AUTO) 0.3 %; EOSINOPHILS # (AUTO) 0.1 10^3/uL (0.0-0.7); HCT - HEMATOCRIT 25.7 % (42.0-52.0); HGB - HEMOGLOBIN 7.9 g/dL (14.0-18.0); LYMPHOCYTES % (AUTO) 7.5 %; MEAN CORPUSCULAR HEMOGLOBIN 32.2 pg (27.0-31.0); MEAN CORPUSCULAR HGB CONC 30.7 g/dL (32.0-36.0); MEAN CORPUSCULAR VOLUME 104.9 fL (80.0-94.0); MEAN PLATELET VOLUME 10.2 fL (7.4-11.4); MONOCYTES # (AUTO) 1.4 10^3/uL (0.0-1.0); MONOCYTES % (AUTO) 10.6 %; NEUTROPHILS # (AUTO) 10.6 10^3/uL (1.5-6.6); NEUTROPHILS % (AUTO) 79.8 %; PLT - PLATELET COUNT 258 10^3/uL (130-450); RED BLOOD COUNT 2.45 10^6/uL (4.70-6.10); RED CELL DISTRIBUTION WIDTH 23.7 % (12.0-15.0); WHITE BLOOD COUNT 13.3 x10^3/uL (4.8-10.8)
[2021-09-03 13:11] LABS: SLIDE REVIEW? Indicated
[2021-09-03 13:25] LABS: ALBUMIN 1.7 g/dL (3.2-5.5); ALBUMIN/GLOBULIN RATIO 0.4 (1.0-2.2); BILIRUBIN,TOTAL 2.1 mg/dL (0.2-1.0); CREATININE 3.4 mg/dL (0.6-1.2); MAGNESIUM 1.8 mg/dL (1.7-2.8); PHOSPHORUS 3.9 mg/dL (2.5-4.6); POTASSIUM 2.9 mmol/L (3.5-5.0); TOTAL PROTEIN 5.9 g/dL (6.7-8.2)
[2021-09-03 13:39] LABS: PLATELET ESTIMATE, MANUAL NORMAL (130-450,000) (NORMAL); PLATELET MORPHOLOGY NORMAL APPEARANCE (NORMAL)
[2021-09-03] MEDS ORDERED: POTASSIUM CHLORIDE 20 MEQ/15 ML UDC PO STA (13:46)
== END 2021-09-03 14:20 | disposition home or self-care (01) ==
LOC: EDUNIT# → ED 12:14
DX: E11.22 Type 2 diabetes mellitus with diabetic chronic kidney disease (principal); Z79.4 Long term (current) use of insulin; E87.6 Hypokalemia; I12.0 Hypertensive chronic kidney disease with stage 5 chronic kidney disease or end stage renal disease; N18.6 End stage renal disease; Z99.2 Dependence on renal dialysis; Z87.891 Personal history of nicotine dependence
CPT/HCPCS: 36415; 80053; 83690; 83735; 84100; 85025; 99283; A9270

== ENCOUNTER 2021-10-30 13:43 | Outpatient (CLI) | payer MEDICARE | END 2021-10-30 13:44 | disposition EMS.NT | LOC: EMS 13:43 | DX: R53.1 Weakness (principal) ==

== ENCOUNTER 2021-11-09 14:46 | Emergency (ER) | payer MEDICARE, MEDICAID ==
--- OUTSIDE RECORDS SUMMARY | 2021-11-09 15:26 | EXTERNAL MEDICAL SUMMARY RPT | Continuity of Care Document ---
:1955 Author Organization [facility] Address [address] [place] [address] Phone Allergies No information. Encounters No information. Medications No information. 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
[2021-11-09 16:20] LABS: BASOPHILS # (AUTO) 0.1 10^3/uL (0.0-0.1); BASOPHILS % (AUTO) 0.3 %; EOSINOPHILS # (AUTO) 0.4 10^3/uL (0.0-0.7); EOSINOPHILS % (AUTO) 2.4 %; HGB - HEMOGLOBIN 7.8 g/dL (14.0-18.0); LYMPHOCYTES # (AUTO) 1.3 10^3/uL (1.5-3.5); LYMPHOCYTES % (AUTO) 9.1 %; MEAN CORPUSCULAR HEMOGLOBIN 27.2 pg (27.0-31.0); MEAN CORPUSCULAR VOLUME 90.6 fL (80.0-94.0); MEAN PLATELET VOLUME 10.2 fL (7.4-11.4); MONOCYTES # (AUTO) 1.3 10^3/uL (0.0-1.0); MONOCYTES % (AUTO) 9.1 %; NEUTROPHILS # (AUTO) 11.4 10^3/uL (1.5-6.6); NEUTROPHILS % (AUTO) 77.3 %; PLT - PLATELET COUNT 245 10^3/uL (130-450); RED BLOOD COUNT 2.87 10^6/uL (4.70-6.10); RED CELL DISTRIBUTION WIDTH 21.7 % (12.0-15.0); WHITE BLOOD COUNT 14.7 x10^3/uL (4.8-10.8)
[2021-11-09 16:31] LABS: ALBUMIN 2.2 g/dL (3.2-5.5); ALBUMIN/GLOBULIN RATIO 0.6 (1.0-2.2); BILIRUBIN,TOTAL 0.8 mg/dL (0.2-1.0); CALCIUM 9.1 mg/dL (8.5-10.3); CREATININE 2.7 mg/dL (0.6-1.2); POTASSIUM 3.5 mmol/L (3.5-5.0); TOTAL PROTEIN 6.2 g/dL (6.7-8.2)
[2021-11-09] MEDS ORDERED: VANCOMYCIN INJ 1 GM in SODIUM CHLORIDE 0.9% 500 ML IV STA (16:38)
--- NOTE | 2021-11-09 16:38 | ED Physician Documentation ---
History of Present Illness - Stated complaint Stated Complaint: HOT LEFT LEG - Chief complaint Chief Complaint: Ext Problem - History obtained from History obtained from: Patient - History of Present Illness Timing: Other (one month) - Additonal information Additional information: 66-year-old male with end-stage renal disease on renal dialysis has developed a pain in his left medial thigh with some swelling and erythema. This is been present for about 1 month the pain is worsening and he was evaluated today at the dialysis center by the nurse who insisted he come to the hospital for evaluation. Review of Systems Constitutional: denies: Fever Respiratory: denies: Cough GI: denies: Vomiting, Diarrhea Skin: denies: Rash Musculoskeletal: reports: Extremity pain. denies: Neck pain, Back pain Neurologic: denies: Generalized weakness, Focal weakness, Numbness PD PAST MEDICAL HISTORY - Past Medical History Cardiovascular: Hypertension, High cholesterol, VT, Other Respiratory: None Neuro: None, Other Endocrine/Autoimmune: Type 2 diabetes, Other GI: Chronic constipation, Pancreatitis, Other : Dialysis, Renal insuffiency HEENT: Macular degeneration, Other Psych: None Musculoskeletal: None Derm: None - Past Surgical History Past Surgical History: Yes General: Cholecystectomy - Present Medications Home Medications: Ambulatory Orders Medication Instructions Recorded Confirmed hydroCHLOROthiazide [Hydrodiuril] 50 mg PO DAILY 10/14/13 01/30/21 Insulin Glulisine [Apidra Solostar] 8 - 12 units SQ AC 08/15/15 01/30/21 Aspirin [Aspir-Low] 81 mg PO DAILY 09/22/16 01/30/21 Atorvastatin [Lipitor] 20 mg PO DAILY 09/22/16 01/30/21 Insulin Glargine [Lantus Solostar] 20 unit SQ HS 11/02/18 01/30/21 Losartan [Cozaar] 25 mg PO DAILY 11/02/18 01/30/21 Metoprolol Succinate 25 mg PO DAILY 11/02/18 01/30/21 Oxycodone HCl/Acetaminophen 1 - 2 each PO Q6H PRN #14 tablet 01/30/21 [Percocet 5-325 mg Tablet] - Allergies Allergies/Adverse Reactions: Allergies Allergy/AdvReac Type Severity Reaction Status Date / Time prednisone AdvReac Hives Verified 11/09/21 14:52 - Social History Does the pt smoke?: No Smoking Status: Former smoker Does the pt drink ETOH?: No Does the pt have substance abuse?: No - Immunizations Immunizations are current?: Yes - POLST Patient has POLST: No PD ED PE NORMAL - Vitals Vital signs reviewed: Yes (normal ) - General General: Alert and oriented X 3, No acute distress, Well developed/nourished - HEENT HEENT: Atraumatic (Normal), PERRL, EOMI - Neck Neck: Supple, no meningeal sign, No bony TTP - Cardiac Cardiac: RRR, No murmur - Respiratory Respiratory: No respiratory distress, Clear bilaterally - Abdomen Abdomen: Soft, Non tender - Derm Derm: Normal color, Warm and dry - Extremities Extremities: Other (There is indurated tender skin over the medial aspect of the left thigh extending from 5 cm above the knee to 2 cm below the groin. The area is generally tender without mass or fluctuance.) - Neuro Neuro: Alert and oriented X 3, non destructive evaluation specialist 2-12 intact, No motor deficit, No sensory deficit, Normal speech Eye Opening: Spontaneous Motor: Obeys Commands Verbal: Oriented GCS Score: 15 - Psych Psych: Normal mood, Normal affect Results - Vitals Vitals: Vital Signs - 24 hr 11/09/21 11/09/21 11/09/21 14:52 17:20 18:00 Temperature 36.5 C Heart Rate 100 89 90 Respiratory 16 16 15 Rate Blood Pressure 117/70 118/83 H 111/76 O2 Saturation 98 96 95 11/09/21 19:00 Temperature Heart Rate 89 Respiratory 12 Rate Blood Pressure 115/73 O2 Saturation 93 Oxygen O2 Source Room air - Labs Labs: Laboratory Tests 11/09/21 11/09/21 11/09/21 16:12 16:12 16:12 WBC 14.7 H RBC 2.87 L Hgb 7.8 L Hct 26.0 L MCV 90.6 MCH 27.2 MCHC 30.0 L RDW 21.7 H Plt Count 245 MPV 10.2 Neut # (Auto) 11.4 H Lymph # (Auto) 1.3 L [place] # (Auto) 1.3 H Eos # (Auto) 0.4 Baso # (Auto) 0.1 Absolute Nucleated RBC 0.00 Nucleated RBC % 0.0 Sodium 133 L Potassium 3.5 Chloride 93 L Carbon Dioxide 27 Anion Gap 13.0 BUN 24 H Creatinine 2.7 H Estimated GFR (MDRD) 24 L Glucose 153 H Lactic Acid 2.3 H Calcium 9.1 Total Bilirubin 0.8 AST 17 ALT 10 Alkaline Phosphatase 104 Total Protein 6.2 L Albumin 2.2 L Globulin 4.0 Albumin/Globulin Ratio 0.6 L Lipase 23 Procedures - Bedside sono Bedside sono by EMP: With use of bedside ultrasound the left medial thigh is evaluated there does not appear to be any pocket of fluid or abscess present. There is generally smooth homogeneous tissue that appears swollen. PD MEDICAL DECISION MAKING - ED course Complexity details: reviewed results, re-evaluated patient, considered differential, d/w patient ED course: 66-year-old male with an unusual appearing cellulitis to the left thigh does not have evidence of abscess but does appear to have infection. He is administered vancomycin 1 g IV after consultation with Dr. MICHEL Horta. Dr. Horta recommends follow-up at dialysis for a second dose. Departure - Departure Disposition: 01 Home, Self Care Clinical Impression: Cellulitis Qualifiers: Site of cellulitis: extremity Site of cellulitis of extremity: lower extremity Laterality: left Qualified Code(s): L03.116 - Cellulitis of left lower limb Condition: Stable Instructions: ED Infec Skin Cellulitis Follow-Up: SHAYLA PAEZ PA-C [Primary Care Provider] - Comments: Tani, today you were given some vancomycin for an infection in your leg. This will last until your next dialysis. Follow-up with Dr. Dumas.
[2021-11-09] MEDS ORDERED: VANCOMYCIN INJ 1 GM in SODIUM CHLORIDE 0.9% 250 ML IV STA (16:56)
[2021-11-09 19:02] VITALS: BP 115/73
[2021-11-09 20:20] LABS: PLATELET ESTIMATE, MANUAL NORMAL (130-450,000) (NORMAL); PLATELET MORPHOLOGY NORMAL APPEARANCE (NORMAL); SLIDE REVIEW? Indicated; WBC MORPHOLOGY (MULTIPLE) NORMAL APPEARANCE (NORMAL)
== END 2021-11-09 19:46 | disposition home or self-care (01) ==
LOC: ED 14:46
DX: L03.116 Cellulitis of left lower limb (principal); E11.22 Type 2 diabetes mellitus with diabetic chronic kidney disease; I12.0 Hypertensive chronic kidney disease with stage 5 chronic kidney disease or end stage renal disease; N18.6 End stage renal disease; Z99.2 Dependence on renal dialysis
CPT/HCPCS: 36415; 80053; 83605; 83690; 85025; 87040; 96365; 96366; 99283; 99284; J3370

== ENCOUNTER 2021-11-20 15:40 | Outpatient (CLI) | payer MEDICARE, MEDICAID ==
--- NOTE | 2021-11-20 19:02 | XRAY Report ---
PROCEDURE: Foot 3 View LT INDICATIONS: L FOOT R/O OSTEOMYELITIS TECHNIQUE: 3 views of the foot were acquired. COMPARISON: None FINDINGS: Bones: There is advanced intercarpal degenerative joint space irregularity with dorsal osteophytes no wandy. Cortical regularity in the mid fifth metatarsal with overlying soft tissue ulcer and diffuse sof t tissue swelling is consistent with osteomyelitis. Linear radiopaque foreign body noted in the dorsa l soft tissues underlying the fifth metatarsal. Diffuse atherosclerotic vascular calcification noted. . IMPRESSION: 1. Metatarsal focal osteolytic lesion with mixed cortical regularity and soft tissue ulcer consistent with osteomyelitis. 2. Advanced diffuse atherosclerotic vascular calcification 3. Midfoot Charcot joint Reviewed by: Chandana Holt MD on 11/20/2021 6:00 PM AKDT Approved by: Chandana Holt MD on 11/20/2021 6:00 PM AKDT Station ID: [id number]
== END 2021-11-20 15:41 | disposition home or self-care (01) ==
LOC: DI 15:40
PROVIDERS: ATTEND Nurse Practitioner
DX: I73.9 Peripheral vascular disease, unspecified (principal); E11.621 Type 2 diabetes mellitus with foot ulcer; N18.9 Chronic kidney disease, unspecified; E11.65 Type 2 diabetes mellitus with hyperglycemia